=== PATIENT | female | born 1945 | race Caucasian/White ===

== ENCOUNTER → 2020-11-23 09:17 | Outpatient (BNVA) | payer MEDICARE, SELFPAY | PROVIDERS: PCP Internal Medicine; Visit Provider Urology | DX: Z13.89 Encounter for screening for other disorder (principal) | CPT/HCPCS: Q3014 ==

== ENCOUNTER 2020-12-06 10:15 | Outpatient (REF) | payer MEDICARE, SELFPAY ==
--- NOTE | ~2020-12-06 | US_ITS ---
EXAMINATION: US RETROPERITONEAL LIMITED (RENAL ONLY) CLINICAL INFORMATION: Calculus of kidney. COMPARISON: Renal ultrasound 11/18/2019 and 04/08/2019. X-ray abdomen 06/11/2019. CT abdomen and pelvis 04/02/2019. TECHNIQUE: Real-time imaging of the kidneys. FINDINGS: RIGHT KIDNEY: 9.3 x 3.6 x 4.2 cm (SAG x AP x TRV). The kidney is normal in size, contour, and echogenicity. Renal cortical thickness is normal. No renal calculi or hydronephrosis. There is an anechoic cyst in midpole measuring 0.8 x 0.7 x 1.1 cm. LEFT KIDNEY: 9.9 x 4.8 x 4.2 cm (SAG x AP x TRV). The kidney is normal in size, contour, and echogenicity. Renal cortical thickness is normal. No focal parenchymal lesions or hydronephrosis. There is an echogenic stone lower pole measuring 0.4 cm. US/US renal BI IMPRESSION: Anechoic cyst midpole right kidney measuring 1.1 cm. Echogenic stone lower pole measuring 0.4 cm.
== END 2020-12-06 10:16 | disposition home or self-care (01) ==
LOC: HO.US 10:15
PROVIDERS: Visit Provider Urology
DX: N20.0 Calculus of kidney (principal)
CPT/HCPCS: 76775

== ENCOUNTER → 2020-12-28 10:30 | Outpatient (BNVA) | payer MEDICARE, SELFPAY | PROVIDERS: PCP Internal Medicine; Visit Provider Urology | DX: N20.0 Calculus of kidney (principal) | CPT/HCPCS: 99212 ==

== ENCOUNTER 2021-06-07 14:21 | Outpatient (REF) | payer MEDICARE, SELFPAY ==
--- NOTE | ~2021-06-07 | US_ITS ---
EXAMINATION: US RETROPERITONEAL LIMITED (RENAL ONLY) CLINICAL INFORMATION: Renal stone. COMPARISON: Previous renal ultrasounds most recent November 2020 TECHNIQUE: Grayscale and color imaging of the kidneys FINDINGS: RIGHT KIDNEY: 10.4 x 3.4 x 5.2 cm (SAG x AP x TRV). The kidney is normal in size, contour, and echogenicity. Renal cortical thickness is normal. There is a 1 cm cyst exophytic to the midpole. No calculi. No hydronephrosis. LEFT KIDNEY: 10 x 6 x 5.4 cm (SAG x AP x TRV). The kidney is normal in size, contour, and echogenicity. Renal cortical thickness is normal. There is a 2 mm echogenic focus in the mid to lower pole with twinkle artifact questionable for a small stone. No focal parenchymal lesions. No hydronephrosis. US/US renal BI IMPRESSION: Question small left renal stone. Small right renal cyst..
== END 2021-06-07 14:22 | disposition home or self-care (01) ==
LOC: HO.US 14:21
PROVIDERS: Visit Provider Urology
DX: N20.0 Calculus of kidney (principal)
CPT/HCPCS: 76775

== ENCOUNTER 2021-06-15 08:23 | Emergency (ER) | payer MEDICARE, SELFPAY ==
--- NOTE | ~2021-06-15 | CT_ITS ---
EXAMINATION: CT ABDOMEN AND PELVIS WITH CONTRAST CLINICAL INFORMATION: Left lower quadrant pain. Rule out diverticulitis. COMPARISON: Previous CT of the abdomen and pelvis March 2019 TECHNIQUE: Multidetector volumetric images were obtained from the superior aspect of the liver through the pubic symphysis following administration 85 mL of Omnipaque 350 intravenous contrast. Sagittal and coronal reformatted images were obtained on the technologist's workstation. Oral contrast: Yes This CT examination was performed using dose optimization techniques as appropriate, variously including the following: *Automated exposure control *Adjustment of mA and/or kV according to patient size (this includes techniques or standardized protocols for targeted exams where dose is matched to indication/reason for exam; i.e. extremities or head) *Use of iterative reconstruction technique DLP: 517 mGy-cm FINDINGS: LUNG BASES: The visualized lung bases are unremarkable. LIVER, GALLBLADDER, AND BILIARY TREE: There is a small 1 cm cyst high in the dome of the liver that is stable. There is mild intrahepatic biliary duct dilatation. The common bile duct measures 1.2 cm. This is similar to previous exam. Pneumobilia is not seen. There is question of a contracted gallbladder containing air. There is tenting of the adjacent duodenum axial image 27 series 2 and coronal reconstructed image 35 again questionable for a fistula to the duodenum. This is similar to previous exams. PANCREAS: Unremarkable. SPLEEN: Unremarkable. ADRENAL GLANDS: Unremarkable. KIDNEYS AND URETERS: There are small bilateral low-attenuation renal lesions probably representing cysts. These are stable. No imaging follow-up recommended. The kidneys are otherwise unremarkable. BLADDER: Unremarkable. GASTROINTESTINAL TRACT: There is diverticulosis of the colon. There is focal wall thickening and edema of the distal left or proximal sigmoid colon. There is stranding of the surrounding fat and small amount of fluid suggestive of acute diverticulitis. No evidence of obstruction, perforation or abscess is seen. Small and large bowel is otherwise unremarkable. The appendix is unremarkable. The stomach is unremarkable. ABDOMINAL WALL: No significant hernia is appreciated. LYMPH NODES: Normal. VASCULAR: There is evidence of atherosclerotic disease. No aneurysm is seen. PELVIC VISCERA: Uterus is enlarged. The uterus measures 11.7 x 8.2 x 9 cm in sagittal AP and transverse dimension. There is a left uterine body mass that measures approximately 7 x 8 x 9 cm. This does not appear appreciably changed from old exams going back to 2019. The endometrium is displaced to the right. There may be a small amount of fluid or thickening of the endometrium. This appears unchanged. Adnexa appear unremarkable. OSSEOUS STRUCTURES: There are degenerative changes of the spine. CT/CT abdomen pelvis w con IMPRESSION: Acute diverticulitis of the distal left or proximal sigmoid colon. Mild intra and extrahepatic biliary duct dilatation. Question contracted gallbladder with air and fistula to the duodenum. This does not appear appreciably changed from prior exam. Small liver and bilateral renal cysts. Enlarged uterus with large left uterine mass probably representing a fibroid. This does not appear appreciably changed from prior exams.
[2021-06-15 08:36] VITALS: BP 144/65; PULSE 108; RESP 18; TEMP 36.8; O2SAT 97; BMI 24.0
--- NOTE | 2021-06-15 08:58 | ED.ABDPAIN ---
HPI - Abdominal Pain General Chief Complaint: Abdominal Pain Stated Complaint: lt side abd pain Time Seen by Provider: 06/15/21 08:50 Source: patient Mode of arrival: ambulatory Limitations: no limitations History of Present Illness HPI narrative: 75 yo female with past medical history of hypertension, high cholesterol, cognitive impairment, renal colic, gallstones here with complaints of left lower quadrant abdominal pain for 3 days. No nausea, vomiting, diarrhea, constipation, urinary symptoms, fevers or chills. Related Data Home Medications Medication Instructions Recorded Confirmed biotin 1 mg tablet 1 mg PO DAILY 11/22/20 05/25/21 cholecalciferol (vitamin D3) 25 25 mcg PO DAILY 11/22/20 05/25/21 mcg (1,000 unit) capsule cyanocobalamin (vitamin B-12) 1,000 mcg PO DAILY 11/22/20 05/25/21 1,000 mcg capsule flaxseed oil 1,000 mg capsule 1,000 mg PO DAILY 11/22/20 05/25/21 metronidazole 1 % topical gel 1 appl TOPICAL DAILY 11/22/20 05/25/21 (Metrogel) pyridoxine (vitamin B6) 100 mg 100 mg PO DAILY tab 11/22/20 05/25/21 tablet (Vitamin B-6) Previous Rx's Medication Instructions Recorded simvastatin 40 mg tablet 40 mg PO QPM 90 Days #90 tab 01/31/21 donepezil 5 mg tablet (Aricept) 5 mg PO BEDTIME 30 Days #30 tab 05/25/21 lisinopril 10 mg tablet 10 mg PO DAILY #90 tab 06/14/21 levofloxacin 750 mg tablet 750 mg PO DAILY 7 Days #7 tab 06/15/21 metronidazole 500 mg tablet 500 mg PO TID #21 tab 06/15/21 (Flagyl) oxycodone 5 mg tablet 5 mg PO Q6H PRN #5 tab 06/15/21 Allergies Allergy/AdvReac Type Severity Reaction Status Date / Time No Known Allergies Allergy Verified 05/25/21 09:42 [No Known Allergies*] Review of Systems Review of Systems Yes all other systems are reviewed and are negative Constitutional: Reports no additional constitutional complaints, Denies body ache(s), Denies chills, Denies fever(s), Denies headache(s) and Denies weakness Eyes: Reports no additional eye complaints and Denies change in vision Reports system reviewed and no additional complaints, except as documented, Denies dizziness, Denies headache(s), Denies nasal congestion, Denies nasal discharge and Denies neck pain Cardiovascular: Reports no additional cardiovascular complaints, Denies chest pain, Denies leg edema and Denies dyspnea Respiratory: Reports no additional respiratory complaints, Denies cough and Denies dyspnea Gastrointestinal: Reports no additional gastrointestinal complaints, Reports abdominal pain, Denies diarrhea, Denies nausea and Denies vomiting Genitourinary: Reports no additional female genitourinary complaints and Denies urinary incontinence Musculoskeletal: Reports no additional musculoskeletal complaints, Denies back pain, Denies arthralgias, Denies joint swelling, Denies neck pain, Denies numbness and Denies tingling Skin/Breast: Reports system reviewed and no additional complaints, except as docu and Denies rash Reports system reviewed and no additional complaints, except as documented, Denies Abnormal speech present, Denies dizziness, Denies headache(s), Denies numbness, Denies tingling and Denies weakness Physical Exam Vital Signs: Vital Signs: Last Vital Signs Temp 98.3 F 06/15/21 08:36 Pulse 108 H 06/15/21 08:36 Resp 16 06/15/21 10:15 BP 144/65 H 06/15/21 08:36 Pulse Ox 97 06/15/21 08:36 Body Mass Index 24.0 Const: General: cooperative, healthy appearing, comfortable and no acute distress Orientation/consciousness: patient oriented x3 Limitations: no limitations HENMT: Head: Yes normal to inspection Ears: hearing grossly normal bilaterally General nose exam: Normal external nose present Face and sinus: Yes normal facial exam Mouth: Normal oral and palatal mucosa present Throat: Yes posterior oropharynx normal Eyes: General: appearance normal, both eyes and all related structures Pupils: Equal, round and reactive pupils present Neck: Neck: Yes normal visual inspection Chest: Chest palpation & inspection: normal inspection of the chest Resp: Effort & Inspection: normal respiratory effort Auscultation: clear to auscultation bilaterally Cardio: Rate: regular rate Rhythm: regular rhythm Peripheral pulses: Peripheral pulses 2+ throughout GI: Inspection: Yes normal to inspection Palpation (GI): Soft to palpation and Tenderness to palpation present (GI) (Left lower quadrant abdominal pain with rebound and guarding) Auscultation: normal bowel sounds Back/Spine/Pelvis: Thoracic/Lumbar Spine: thoracic and lumbar spine normal to inspection Skin: General skin exam: no rashes or lesions noted Neuro: General: patient oriented x3, no focal motor deficits and normal sensation to monofilament Cranial nerves: Yes Equal, round and reactive pupils present Cognition (Neuro): normal cognition Speech: No Abnormal speech present Gait exam (Neuro): Normal gait present Motor exam (neuro): 5/5 motor strength present throughout Extrem: General: Yes normal to inspection Course Course Course Narrative: 75-year-old female here with complaints of left lower quadrant abdominal pain for 3 days. On exam is rebound and guarding. Will need labs, UA, CT, pain control 1215-labs are unremarkable. Urine is negative. CT is consistent with diverticulitis. 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 Patient has history of seen with gallstones in the jejunum which have been removed. The patient tells me she was referred to a surgeon at [facility] but decided not to have the surgery. I looked at the patient's previous CT scan this looks unchanged from previous. Patient is aware she needs to follow up with primary care doctor in regards to this. She is tolerating p.o.. Her pain is well controlled. Will send her home with antibiotics for the diverticulitis. Reviewed worrisome signs and symptoms and when to return to the emergency department. Comfortable discharge home. MDM - Abdominal Pain MDM Narrative Medical decision making narrative: Diverticulitis Medical Records Attestation: I reviewed the patient's medical records. Lab Data Attestation: I reviewed the patient's lab results. Result diagrams: 06/15/21 09:09 06/15/21 09:09 Labs: Lab Results 06/15/21 06/15/21 06/15/21 Range/Units 09:09 09:09 09:55 WBC 10.6 (4.8-10.8) X10*3/uL RBC 4.53 (4.20-5.50) X10*6/uL Hgb 14.6 (12.0-16.0) g/dl Hct 43.1 (37-47) % MCV 95.1 (80-98) fL MCH 32.2 (27.0-33.0) pg MCHC 33.9 (31.0-35.0) g/dl RDW 13.2 (11.0-16.0) % Plt Count 210 (160-400) X10*3/uL MPV 10.9 (9.4-12.3) fL Immature Gran % (Auto) 0.4 (0.0-0.4) % Neut % (Auto) 74.1 H (45-73) % Lymph % (Auto) 18.0 L (20-40) % [place] % (Auto) 6.9 (2-11) % Eos % (Auto) 0.4 (0-4) % Baso % (Auto) 0.2 (0-2) % Lymph # (Auto) 1.9 (1.2-4.9) X10*3/uL [place] # (Auto) 0.7 (0.1-1.2) X10*3/uL Eos # (Auto) 0.0 (0.0-0.4) X10*3/uL Baso # (Auto) 0.0 (0.0-0.2) X10*3/uL Abs Immat Gran (auto) 0.04 H (0.00-0.03) X10*3/uL Absolute Neuts (auto) 7.8 (2.0-8.3) X10*3/uL Absolute Nucleated RBC 0.000 (0.0-0.012) X10*3/uL Nucleated RBC % (auto) 0.0 (0.0-0.2) /100WBC Sodium 140 (135-145) mmol/L Potassium 4.0 (3.3-5.1) mmol/L Chloride 104 (96-108) mmol/L Carbon Dioxide 28 (22-29) mmol/L Anion Gap 12 (12-20) BUN 9 (9-16) mg/dL Creatinine 0.99 (0.5-1.4) mg/dL Estim Creat Clear Calc 41.7 Estimated GFR 55 Random Glucose 120 H (60-115) mg/dL Calcium 9.2 (8.4-10.2) mg/dL Total Bilirubin 1.3 H (0.0-1.0) mg/dL Direct Bilirubin 0.5 (0.0-0.5) mg/dL AST 30 (5-31) U/L ALT 29 (0-31) U/L Alkaline Phosphatase 80 (39-117) U/L Total Protein 6.2 L (6.5-8.0) g/dL Albumin 4.0 (3.5-5.0) g/dL Lipase 15 (8-78) U/L Urine Color YELLOW Urine Appearance CLEAR Urine pH 6.0 (5.0-8.0) Ur Specific [place] <= 1.005 (1.005-1.025) Urine Protein NEG (NEG-TRACE) MG/DL Urine Glucose (UA) NEG (NEG) MG/DL Urine Ketones NEG (NEG) MG/DL Urine Blood NEG (NEG) Urine Nitrite NEG (NEG) Ur Leukocyte Esterase NEG (NEG) Imaging Data CT scan - abdomen: Attestation: I personally reviewed and interpreted this imaging study as follows: Radiologist's impression: [place] [id number] CT Scan Report Signed Patient: Elba Crook MR#: [id number] : 1945 Acct:[id number] Age/Sex: 75 / F ADM Date: 06/15/21 Loc: .ED Attending Dr: Ordering Physician: Soledad Yoo NP Date of Service: 06/15/21 Procedure(s): CT abdomen pelvis w con Accession Number(s): [id number] cc: Soledad Yoo NP~ EXAMINATION: CT ABDOMEN AND PELVIS WITH CONTRAST? CLINICAL INFORMATION: Left lower quadrant pain. Rule out diverticulitis.? COMPARISON: Previous CT of the abdomen and pelvis March 2019 TECHNIQUE: Multidetector volumetric images were obtained from the superior aspect of the liver through the pubic symphysis following administration 85 mL of Omnipaque 350 intravenous contrast. Sagittal and coronal reformatted images were obtained on the technologist's workstation.? Oral contrast: Yes This CT examination was performed using dose optimization techniques as appropriate, variously including the following: *Automated exposure control *Adjustment of mA and/or kV according to patient size (this includes techniques or standardized protocols for targeted exams where dose is matched to indication/reason for exam; i.e. extremities or head) *Use of iterative reconstruction technique DLP: 517 mGy-cm FINDINGS: LUNG BASES: The visualized lung bases are unremarkable.? LIVER, GALLBLADDER, AND BILIARY TREE: There is a small 1 cm cyst high in the dome of the liver that is stable. There is mild intrahepatic biliary duct dilatation. The common bile duct measures 1.2 cm. This is similar to previous exam. Pneumobilia is not seen. There is question of a contracted gallbladder containing air. There is tenting of the adjacent duodenum axial image 27 series 2 and coronal reconstructed image 35 again questionable for a fistula to the duodenum. This is similar to previous exams. PANCREAS: Unremarkable.? SPLEEN: Unremarkable.? ADRENAL GLANDS: Unremarkable.? KIDNEYS AND URETERS: There are small bilateral low-attenuation renal lesions probably representing cysts. These are stable. No imaging follow-up recommended. The kidneys are otherwise unremarkable. BLADDER: Unremarkable.? GASTROINTESTINAL TRACT: There is diverticulosis of the colon. There is focal wall thickening and edema of the distal left or proximal sigmoid colon. There is stranding of the surrounding fat and small amount of fluid suggestive of acute diverticulitis. No evidence of obstruction, perforation or abscess is seen. Small and large bowel is otherwise unremarkable. The appendix is unremarkable. The stomach is unremarkable.? ABDOMINAL WALL: No significant hernia is appreciated.? LYMPH NODES: Normal. VASCULAR: There is evidence of atherosclerotic disease. No aneurysm is seen. PELVIC VISCERA: Uterus is enlarged. The uterus measures 11.7 x 8.2 x 9 cm in sagittal AP and transverse dimension. There is a left uterine body mass that measures approximately 7 x 8 x 9 cm. This does not appear appreciably changed from old exams going back to 2019. The endometrium is displaced to the right. There may be a small amount of fluid or thickening of the endometrium. This appears unchanged. Adnexa appear unremarkable. OSSEOUS STRUCTURES: There are degenerative changes of the spine.? CT/CT abdomen pelvis w con IMPRESSION: Acute diverticulitis of the distal left or proximal sigmoid colon. Mild intra and extrahepatic biliary duct dilatation. Question contracted gallbladder with air and fistula to the duodenum. This does not appear appreciably changed from prior exam. Small liver and bilateral renal cysts. Enlarged uterus with large left uterine mass probably representing a fibroid. This does not appear appreciably changed from prior exams. Discharge Plan Discharge Clinical Impression: Diverticulitis Patient Disposition: Home, Self-Care Instructions: Diverticulitis (ED), Diverticulosis (ED), Diverticulitis Diet (ED) Additional Instructions: Take the antibiotics as prescribed Take the antibiotics with food Start a probiotic Your CT scan also shows a fistula between your gallbladder and duodenum. This was seen on your previous CT scan and it appears unchanged Prescriptions: New metronidazole [Flagyl] 500 mg tablet 500 mg PO TID Qty: 21 RF: 0 levofloxacin 750 mg tablet 750 mg PO DAILY 7 Days Qty: 7 RF: 0 oxycodone 5 mg tablet 5 mg PO Q6H PRN (Reason: pain) Qty: 5 RF: 0 No Action simvastatin 40 mg tablet 40 mg PO QPM 90 Days Qty: 90 RF: 2 lisinopril 10 mg tablet 10 mg PO DAILY Qty: 90 RF: 3 pyridoxine (vitamin B6) [Vitamin B-6] 100 mg tablet 100 mg PO DAILY RF: 0 metronidazole [Metrogel] 1 % gel 1 appl topical DAILY RF: 0 cholecalciferol (vitamin D3) 25 mcg (1,000 unit) capsule 25 mcg PO DAILY RF: 0 biotin 1 mg tablet 1 mg PO DAILY RF: 0 flaxseed oil 1,000 mg capsule 1,000 mg PO DAILY RF: 0 cyanocobalamin (vitamin B-12) 1,000 mcg capsule 1,000 mcg PO DAILY RF: 0 donepezil [Aricept] 5 mg tablet 5 mg PO BEDTIME 30 Days Qty: 30 RF: 3 Interventions: ED Discharge Assessment Last Done: 06/15/21 11:28 Discharge Date/Time: 06/15/21 11:32 [facility] Past Medical History Attestation statement: The following information was validated with the patient. Source: old records reviewed and nursing notes reviewed Medical History Cholecystoduodenal fistula History of renal calculi Hypercholesterolemia Hypertension Impaired glucose tolerance Overweight (BMI 25.0-29.9) Rosacea Tubular adenoma of colon Surgical History H/O breast biopsy History of cystoscopy History of laparotomy History of rectal polypectomy Family History Family History Family/Other Medical history unknown Social History Social History Housing: House Alcohol intake: never Patient Tobacco Use Status: Never used Tobacco e-Cigarette/Vaping Use: Never Used Use of substances other than those prescribed or required for medical reasons: No Advance Directives: No service: No Current occupational status: employed
[2021-06-15 09:15] LABS: MANUAL DIFF FLAG NO
[2021-06-15 09:22] LABS: Basophils Percent Auto 0.2 % (0-2); Eosinophils Percent Auto 0.4 % (0-4); Hematocrit 43.1 % (37-47); Hemoglobin 14.6 g/dl (12.0-16.0); Imm Gran Abs Auto 0.04 X10*3/uL (0.00-0.03); Imm Gran Pct Auto 0.4 % (0.0-0.4); Lymphocytes Absolute Auto 1.9 X10*3/uL (1.2-4.9); Mean Corpuscular HGB Conc 33.9 g/dl (31.0-35.0); Mean Corpuscular Hemoglobin 32.2 pg (27.0-33.0); Mean Corpuscular Volume 95.1 fL (80-98); Mean Platelet Volume 10.9 fL (9.4-12.3); Monocytes Absolute Auto 0.7 X10*3/uL (0.1-1.2); Monocytes Percent Auto 6.9 % (2-11); Neutrophils Absolute Auto 7.8 X10*3/uL (2.0-8.3); Neutrophils Percent Auto 74.1 % (45-73); Platelet Count 210 X10*3/uL (160-400); Red Blood Count 4.53 X10*6/uL (4.20-5.50); Red Cell Distribution Width 13.2 % (11.0-16.0); White Blood Count 10.6 X10*3/uL (4.8-10.8)
[2021-06-15 09:42] LABS: Alanine Aminotransferase 29 U/L (0-31); Alkaline Phosphatase 80 U/L (39-117); Anion Gap 12 (12-20); Aspartate Amino Transferase 30 U/L (5-31); Bilirubin Direct 0.5 mg/dL (0.0-0.5); Bilirubin Total 1.3 mg/dL (0.0-1.0); Blood Urea Nitrogen 9 mg/dL (9-16); Calcium 9.2 mg/dL (8.4-10.2); Carbon Dioxide 28 mmol/L (22-29); Chloride 104 mmol/L (96-108); Creatinine Clr Calc Pharmacy 41.7; Estimated Glomerular Filt Rate 55; Glucose Random 120 mg/dL (60-115); Lipase 15 U/L (8-78); Sodium 140 mmol/L (135-145); Total Protein 6.2 g/dL (6.5-8.0)
[2021-06-15 10:07] LABS: Appearance Urine CLEAR; Color Urine YELLOW; Glucose Urine UA NEG (NEG); Leukocyte Esterase Urine NEG (NEG); Nitrite Urine NEG (NEG); Specific Gravity - Urine <= 1.005 (1.005-1.025); Urine Blood NEG (NEG); Urine Ketones NEG (NEG); Urine Protein NEG (NEG-TRACE)
[2021-06-15 10:15] VITALS: RESP 16
[2021-06-15] MEDS: Morphine Sulfate 2 MG/ML CARTRIDGE IVPUSH (10:15)
[2021-06-15] MEDS: iohexoL 350 MG/ML 100 ML INFUS..BTL IV (10:45)
== END 2021-06-15 11:32 | disposition home or self-care (01) ==
PROVIDERS: Nurse Practitioner Family; Emergency Provider Emergency Medicine Emergency Medical Services; PCP Internal Medicine
DX: K57.32 Diverticulitis of large intestine without perforation or abscess without bleeding (principal); Z79.899 Other long term (current) drug therapy
CPT/HCPCS: 36415; 74177; 80048; 80076; 81003; 83690; 85025; 96374; 99284; J2270; Q9967

== ENCOUNTER 2021-07-06 09:12 | Outpatient (REF) | payer MEDICARE, SELFPAY ==
--- NOTE | ~2021-07-06 | MM_ITS ---
EXAMINATION: MM SCREENING DIGITAL BREAST TOMOSYNTHESIS, BILATERAL CLINICAL INFORMATION: Screening. Asymptomatic. History focal atypical lobular hyperplasia right breast, status post excision 02/03/2015. The lifetime risk of breast cancer based on the Tyrer-Cuzick Model is 13%. COMPARISON: Mammography: 06/11/2019, 04/24/2018, 04/19/2018, 03/05/2017 TECHNIQUE: Digital breast tomosynthesis is performed in both the craniocaudal and mediolateral oblique views along with computer-aided detection (CAD). Synthesized 2D images are generated from the tomosynthesis. FINDINGS: There are scattered areas of fibroglandular density (ACR BI-RADS breast composition Category b). There is fine fibronodular parenchymal pattern. Left breast is similar to prior studies with no interval mass or architectural abnormality. There is biopsy clip marker again noted left breast mid 3:00 position. Neither breast shows abnormal calcifications. The axilla and skin contours are unremarkable. Right breast has benign coarse calcification in the lumpectomy scar posterior upper breast. There are 2 focal nodular asymmetric densities on the right, posterior 12:00 position 6 cm from nipple, and periareolar upper outer right breast 3 cm from nipple. Patient will be recalled for additional imaging. MM/MM tomosynthesis screening BI IMPRESSION: 1. Right: 2 nodular asymmetric densities on right posterior 12:00 and periareolar upper outer. 2. Left: No mammographic evidence of malignancy. ASSESSMENT: BI-RADS 0: Incomplete - Need Additional Imaging Evaluation RECOMMENDATION: 1. Additional views of the right breast (3-D spot CC, 3-D spot ML). 2. Targeted ultrasound if warranted after review of the additional views. 3. Radiology department staff will contact the patient for additional imaging. This patient's information was entered into a reminder system with a target due date for their next mammogram.
--- NOTE | ~2021-07-06 | MM_ITS ---
EXAMINATION: BONE DENSITOMETRY CLINICAL INDICATION: Encounter for screening for osteoporosis. COMPARISON: Previous BD dated 07/23/2018 and baseline BD dated 05/07/2009. TECHNIQUE: Using a [employer] DXA System (software version: 13.1) manufactured by [employer], dual-energy x-ray absorptiometry was performed of the lumbar spine and left hip. The images are of good technical quality. Summary results are attached. FINDINGS: AP SPINE L1-L4: Current: BMD 0.973 g/cm2, Z-score 0.1, T-score -1.7, osteopenia, 0.4% decrease from previous, 4.1% decrease from baseline (<5% change is not significant). Prior: BMD 0.977 g/cm2. Baseline: BMD 1.015 g/cm2. LEFT FEMUR, NECK: Current: BMD 0.793 g/cm2, Z-score 0.2, T-score -1.8, osteopenia. Prior: BMD 0.903 g/cm2. Baseline: BMD 0.915 g/cm2. LEFT FEMUR, TOTAL: Current: BMD 0.844 g/cm2, Z-score 0.5, T-score -1.3, osteopenia, 7.3% decrease from previous, 14.1% decrease from baseline (<5% change is not significant). Prior: BMD 0.910 g/cm2. Baseline: BMD 0.983 g/cm2. IDENTIFIED RISK FACTORS: Low calcium intake, family history (parental hip fracture), menopause. HISTORY OF FRACTURE: None listed. MEDICATIONS: Vitamin D. MM/XR DEXA axial skeleton IMPRESSION: 1. DIAGNOSIS: Osteopenia based on the lowest T-score value of -1.8 in the femoral neck applying World Health Organization criteria. 2. 10-YEAR FRACTURE RISK PREDICTION, FRAX: Major osteoporotic fracture (clinical spine, forearm, hip or shoulder) 23.2%. Hip fracture 13.2%. 3. Treatment Recommendations: NOF guidelines recommend consideration for treatment in postmenopausal women and men age 50 and older presenting with the following: -A hip or vertebral (clinical or morphometric) fracture. -T-score less than or equal to -2.5 at the femoral neck or spine after appropriate evaluation to exclude secondary causes. -Low bone mass at the hip or spine and a 10-year fracture probability by FRAX of greater than or equal to 3% for hip fracture or greater than or equal to 20% for major osteoporotic fracture based on the [place] adapted WHO algorithm. 4. Other Recommendations: All treatment decisions require clinical judgment and consideration of individual patient factors, including patient preferences, comorbidities, previous drug use, risk factors not captured in the FRAX model (e.g. frailty, falls, vitamin D deficiency, increased bone turnover, interval significant decline in bone density) and possible under or overestimation of fracture risk by FRAX. Additional medical evaluation for secondary cause of low bone mineral density may be appropriate. FUTURE SCAN RECOMMENDATION: People with diagnosed cases of osteoporosis or at high risk for fracture should have regular bone mineral density tests. For patients eligible for Medicare, routine testing is allowed once every 2 years. The testing frequency can be increased to one year for patients who have rapidly progressing disease, those who are receiving or discontinuing medical therapy to restore bone mass, or have additional risk factors.
== END 2021-07-06 09:13 | disposition home or self-care (01) ==
LOC: HO.MAMMO 09:12
PROVIDERS: Visit Provider Internal Medicine
DX: Z12.31 Encounter for screening mammogram for malignant neoplasm of breast (principal); Z13.820 Encounter for screening for osteoporosis; M85.80 Other specified disorders of bone density and structure, unspecified site; Z78.0 Asymptomatic menopausal state; Z87.81 Personal history of (healed) traumatic fracture; Z79.899 Other long term (current) drug therapy
CPT/HCPCS: 77063; 77067; 77080

== ENCOUNTER 2021-07-11 08:54 | Outpatient (REF) | payer MEDICARE, SELFPAY ==
--- NOTE | ~2021-07-11 | MM_ITS ---
EXAMINATION: MM DIAGNOSTIC DIGITAL BREAST TOMOSYNTHESIS, RIGHT US DIAGNOSTIC ULTRASOUND BREAST, RIGHT CLINICAL INFORMATION: Recall from screening for 2 new findings right breast, periareolar nodular asymmetric density and 12:00 nodular asymmetric density. History focal atypical lobular hyperplasia right breast, status post excision 02/03/2015. TC score 13%. COMPARISON: Mammography: 07/06/2021, 06/11/2019, 04/19/2018 TECHNIQUE: Digital breast tomosynthesis is performed. 2D images are generated from the tomosynthesis. The following views are obtained: Spot CC, spot MLO x2, spot ML. Ultrasound right breast is targeted to the periareolar and upper breast. Grayscale imaging and color Doppler are performed without and with harmonics. FINDINGS: There are scattered areas of fibroglandular density (ACR BI-RADS breast composition Category b). The additional views confirm focal nodular asymmetric density anterior 11:00 right breast, approximately 0.5 cm. Margins are indistinct. The additional views also confirm a benign-appearing circumscribed macrolobulated nodule mid 12:00 position under 1 cm. Ultrasound right breast demonstrates an irregular hypoechoic nodule 11:00 position 3 cm from nipple 0.5 cm in size. There is associated color flow extending into the nodule. Ultrasound also demonstrates an incidental oval cyst 12:00 position 6 cm from nipple with overall dimensions 0.4 x 0.5 x 0.6 cm. The cyst is anechoic and shows increased through-transmission of sound, circumscribed margins, and no color flow. Results are discussed with the patient and her at time of visit. The finding anterior 11:00 position is recommended for ultrasound-guided core biopsy. MM/MM tomosynthesis added views R IMPRESSION: 1. Suspicious irregular hypoechoic nodule anterior 11:00 position measuring 0.5 cm. 2. Incidental cyst 12:00 position mid depth. ASSESSMENT: BI-RADS 4: Suspicious RECOMMENDATION: Ultrasound-guided core biopsy nodule anterior 11:00 position. This patient's information was entered into a reminder system with a target due date for their next mammogram.
== END 2021-07-11 08:55 | disposition home or self-care (01) ==
LOC: HO.MAMMO 08:54
PROVIDERS: Visit Provider Internal Medicine
DX: R92.1 Mammographic calcification found on diagnostic imaging of breast (principal); R92.2 Inconclusive mammogram
CPT/HCPCS: 76642; 77061; 77065

== ENCOUNTER 2021-07-20 09:14 | Outpatient (REF) | payer MEDICARE, SELFPAY ==
--- NOTE | ~2021-07-20 | MM_ITS ---
EXAMINATION: ULTRASOUND GUIDED CORE BIOPSY BREAST, RIGHT POST PROCEDURE DIGITAL MAMMOGRAM, RIGHT CLINICAL INFORMATION: Irregular hypoechoic nodule anterior 11:00 right breast under 1 cm. COMPARISON: Mammography 07/06/2021, 07/11/2021, targeted right breast ultrasound 07/11/2021. FINDINGS: Proper informed consent is obtained from the patient after discussion of the procedure, potential risks and complications, and alternatives. Patient was given an opportunity for questions. The patient appeared to understand. The patient consented to the procedure and signed the consent form. GUIDANCE: Ultrasound-guided; aseptic technique. LESION: Irregular hypoechoic nodule 0.5 cm, anterior 11:00 right breast with internal color flow. APPROACH: Lateral medial. ANESTHESIA: 9 mL carbonated 1% lidocaine. DERMATOTOMY: Single skin jan dermatotomy performed. NEEDLE: 14-gauge Achieve core biopsy device with 13.5-gauge co-axial guide needle. CORES: 5. CLIP: HydroMARK; shape: open coil. POST PROCEDURE UNILATERAL DIGITAL MAMMOGRAM: The post biopsy mammogram is performed in separate room using separate digital mammography equipment from the biopsy procedure. CC and ML x2 views are obtained. There are scattered areas of fibroglandular density (breast composition category: b). The clip marker is in position, residing adjacent to medial side of the nodule. No gross hematoma. The patient tolerated the procedure well. No immediate complications. Home instructions reviewed with the patient. Final pathology results are pending. MM/MM diagnostic mammo unilat RT IMPRESSION: 1. Status post ultrasound-guided core biopsy right breast. 2. Clip placed: HydroMARK; shape: open coil. 3. Pathology pending. An addendum report will be issued.
[2021-07-20] MEDS: Lidocaine HCl 1 % 20 ML VIAL 9 ML SUBCUT (10:57)
[2021-07-20] MEDS: Sodium Bicarbonate 8.4% 50 MEQ/50 ML VIAL SUBCUT (10:58)
== END 2021-07-20 09:15 | disposition home or self-care (01) ==
LOC: HO.MAMMO 09:14
PROVIDERS: Visit Provider Surgery
DX: R92.1 Mammographic calcification found on diagnostic imaging of breast (principal)
CPT/HCPCS: 19083; 77065; 88305; 88342; 88360; 99212

== ENCOUNTER → 2021-07-27 11:10 | Outpatient (BNVA) | payer MEDICARE, SELFPAY | PROVIDERS: PCP Internal Medicine; Referring Provider Internal Medicine; Visit Provider Surgery | DX: C50.911 Malignant neoplasm of unspecified site of right female breast (principal) | CPT/HCPCS: 99212 ==

== ENCOUNTER → 2021-07-28 08:54 | Outpatient (BNV) | payer MEDICARE, SELFPAY | PROVIDERS: PCP Internal Medicine; Visit Provider Internal Medicine | DX: C50.911 Malignant neoplasm of unspecified site of right female breast (principal) | CPT/HCPCS: 99204; 99212; 99214 ==

== ENCOUNTER 2021-08-02 08:50 | Day surgery (SDC) | payer MEDICARE, SELFPAY ==
--- NOTE | 2021-08-01 13:14 | HO.ANESPROP2 ---
Documented by User: Radha Padgett NP 08/01/21 13:26 HPI - Anesthesia Eval Consult details Narrative: 75yo F for Right [place] Node Biopsy, Breast Biopsy Needle Localization, Breast Lumpectomy PMFSH Active Problems Active Problems: All Active Problems (Updated 07/28/21 @ 11:37 by Elke Prado MD) Invasive ductal carcinoma of right breast (Acute) Abnormal mammogram of right breast (Acute) Breast calcification, right (Acute) Cognitive impairment (Acute) Osteopenia (Acute) Breast cancer screening by mammogram (Acute) Annual physical exam (Acute) Nephrolithiasis (Acute) Osteoarthritis of knees, bilateral (Acute) Memory deficit (Acute) Impaired glucose tolerance (Acute) Overweight (BMI 25.0-29.9) (Acute) Hypertension (Acute) Hypercholesterolemia (Acute) Past Medical History Medical History Abnormal mammogram of right breast Cholecystoduodenal fistula History of renal calculi Hypercholesterolemia Hypertension Impaired glucose tolerance Invasive ductal carcinoma of right breast Overweight (BMI 25.0-29.9) Rosacea Tubular adenoma of colon Family History Family History Family/Other Medical history unknown Father Cancer Surgical History Surgical History H/O breast biopsy History of cystoscopy History of laparotomy History of rectal polypectomy Social History Social History Housing: House Are you a primary laboratory animal caretaker to a significant other at home: No Alcohol intake: former Patient Tobacco Use Status: Never used Tobacco e-Cigarette/Vaping Use: Never Used Use of substances other than those prescribed or required for medical reasons: No Are you DNR?: No Advance Directives: No Advance Directives Information Provided: Yes service: No Current occupational status: employed Meds Allergies Allergy/AdvReac Type Severity Reaction Status Date / Time No Known Allergies Allergy Verified 08/02/21 09:01 [No Known Allergies*] Home Medications Medication Instructions Recorded Confirmed Last Taken Type biotin 1 mg tablet 1 mg PO DAILY 11/22/20 07/27/21 Unknown History cholecalciferol (vitamin D3) 25 25 mcg PO DAILY 11/22/20 07/27/21 Unknown History mcg (1,000 unit) capsule cyanocobalamin (vitamin B-12) 1,000 mcg PO DAILY 11/22/20 07/27/21 Unknown History 1,000 mcg capsule flaxseed oil 1,000 mg capsule 1,000 mg PO DAILY 11/22/20 07/27/21 Unknown History metronidazole 1 % topical gel 1 appl TOPICAL DAILY 11/22/20 07/27/21 Unknown History (Metrogel) pyridoxine (vitamin B6) 100 mg 100 mg PO DAILY tab 11/22/20 07/27/21 Unknown History tablet (Vitamin B-6) Exam Exam Date and Time: August 01, 2021 1314 Pertinent Lab Results Pertinent Lab Results: Laboratory Tests 06/15/21 06/15/21 09:09 09:09 WBC 10.6 Hgb 14.6 Hct 43.1 Plt Count 210 Sodium 140 Potassium 4.0 Chloride 104 Carbon Dioxide 28 BUN 9 Creatinine 0.99 Assessment and Plan Assessment Anesthesia Assessment: Chart Reviewed Documented by User: Mary Kay Lang MD 08/02/21 13:34 [facility] Past Medical History Medical History Abnormal mammogram of right breast Cholecystoduodenal fistula History of renal calculi Hypercholesterolemia Hypertension Impaired glucose tolerance Invasive ductal carcinoma of right breast Overweight (BMI 25.0-29.9) Rosacea Tubular adenoma of colon Family History Family History Family/Other Medical history unknown Father Cancer Surgical History Surgical History H/O breast biopsy History of cystoscopy History of laparotomy History of rectal polypectomy History of Problems with Anesthesia: No Social History Social History Housing: House Are you a primary laboratory animal caretaker to a significant other at home: No Alcohol intake: former Patient Tobacco Use Status: Never used Tobacco e-Cigarette/Vaping Use: Never Used Use of substances other than those prescribed or required for medical reasons: No Are you DNR?: No Advance Directives: No Advance Directives Information Provided: Yes service: No Current occupational status: employed Meds Allergies Allergy/AdvReac Type Severity Reaction Status Date / Time No Known Allergies Allergy Verified 08/02/21 09:01 [No Known Allergies*] Home Medications Medication Instructions Recorded Confirmed Last Taken Type biotin 1 mg tablet 1 mg PO DAILY 11/22/20 07/27/21 Unknown History cholecalciferol (vitamin D3) 25 25 mcg PO DAILY 11/22/20 07/27/21 Unknown History mcg (1,000 unit) capsule cyanocobalamin (vitamin B-12) 1,000 mcg PO DAILY 11/22/20 07/27/21 Unknown History 1,000 mcg capsule flaxseed oil 1,000 mg capsule 1,000 mg PO DAILY 11/22/20 07/27/21 Unknown History metronidazole 1 % topical gel 1 appl TOPICAL DAILY 11/22/20 07/27/21 Unknown History (Metrogel) pyridoxine (vitamin B6) 100 mg 100 mg PO DAILY tab 11/22/20 07/27/21 Unknown History tablet (Vitamin B-6) Exam Airway Mallampati Class: II TM Dist: >3cm Neck ROM: Full Loose/Missing/Broken Teeth: No Heart: RRR Lungs: CTA Assessment and Plan Assessment Anesthesia Assessment: Anesthesia Plan Discussed Final Anesthetic Review History of Problems with Anesthesia: No NPO: Yes ASA Class: II and V Final Preanesthetic Review: Meds/Allgs Chart Reviewed, Consent Obtained/Reviewed and Anes Risks/Benef Reviewed Patient Risk: Low Procedure Risk: Low Anesthetic Plan Anesthetic Plan: MAC: Disposition: Standard PACU
[2021-08-02] VITALS (9 sets, daily range): BP systolic 110–138; BP diastolic 66–76; PULSE 64–95; RESP 16–18; TEMP 36.3–36.8; O2SAT 97–99; BMI 25.3
--- NOTE | ~2021-08-02 | NM_ITS ---
EXAMINATION: NM LYMPH SCINTIGRAPHY CLINICAL INFORMATION: Malignant neoplasm of right breast. COMPARISON: None TECHNIQUE: Following explaining right sentinal node procedure, benefits and risk, a written consent was obtained by Dr. Leach. 4% lidocaine was applied around the right breast areola half an hour prior to the exam. The area around the right breast areola was then cleaned in a sterile fashion. 0.5 mCi of tilmanocept divided in 4 equal doses was injected in 4 quadrants around the right breast areola without immediate complications. Imaging was obtained approximately 30 minutes later. FINDINGS: AP and lateral images obtained of the chest reveal isotope activity in the 4 quadrants surrounding the right breast areola. There is a solitary sentinel node in the right anterior axilla with streaky activity seen extending superiorly in the right axilla. NM/NM sentinel node w imaging IMPRESSION: Solitary sentinel node seen in the right anterior axilla on right breast lymphoscintigraphy.
--- NOTE | ~2021-08-02 | MM_ITS ---
EXAMINATION: MM MAMMOGRAM GUIDED NEEDLE LOCALIZATION BREAST, RIGHT MM NEEDLE LOCALIZATION SPECIMEN FROM THE RIGHT BREAST CLINICAL INFORMATION: Invasive ductal cancer anterior 11:00 right breast. COMPARISON: Mammography 07/06/2021, 07/11/2021, 07/20/2021, ultrasound right breast 07/11/2021, ultrasound-guided core biopsy right breast 07/20/2021. TECHNIQUE NEEDLE LOC: Proper informed consent is obtained from the patient after discussion of the procedure, potential risks and complications, and alternatives including declining the procedure today. Patient was given an opportunity for questions. The patient appeared to understand. The patient consented to the procedure and signed the consent form. GUIDANCE: Digital mammography. APPROACH: Cranio-caudal. TARGET: HydroMark Open coil shaped clip marker. ANESTHESIA: Carbonated lidocaine 1%: 6 mL. LOCALIZATION MARKER: [place] [employer]. 5 cm length. The skin is prepped and local anesthesia administered. The needle is positioned and position assessed with mammography. The wire is hooked into position. Clymer needle protector placed. The patient tolerated the procedure well and had no immediate complication. Following the procedure, 4% lidocaine ointment was administered to the left areola and covered with Tegaderm in anticipation of nuclear lymphoscintigraphy injection for sentinel lymph node mapping. Procedure results discussed with surgeon. TECHNIQUE SPECIMEN RADIOGRAPH: Imaging of the excised specimen is performed using digital mammography in 1 view. FINDINGS SPECIMEN RADIOGRAPH: The specimen shows the needle and hookwire are delivered intact. The biopsy clip marker is identified in the specimen. Results were called to Dr. Justin Suárez in the operating room at the time of imaging. MM/MM needle loc RT IMPRESSION: 1. Status post right breast needle localization with wire hooked into position. 2. Post operative specimen radiograph obtained.
[2021-08-02] MEDS: Lidocaine HCl 1 % 20 ML VIAL 7 ML SUBCUT (10:55)
[2021-08-02] MEDS: Sodium Bicarbonate 8.4% 50 MEQ/50 ML VIAL SUBCUT (10:56)
[2021-08-02] MEDS: Lactated Ringers 1,000 ML 100 ML IVCONT (11:53)
--- NOTE | 2021-08-02 13:54 | P.CONAN_ITS ---
[facility] Active Problems Active Problems: All Active Problems (Updated 07/28/21 @ 11:37 by Elke Prado MD) Invasive ductal carcinoma of right breast (Acute) Abnormal mammogram of right breast (Acute) Breast calcification, right (Acute) Cognitive impairment (Acute) Osteopenia (Acute) Breast cancer screening by mammogram (Acute) Annual physical exam (Acute) Nephrolithiasis (Acute) Osteoarthritis of knees, bilateral (Acute) Memory deficit (Acute) Impaired glucose tolerance (Acute) Overweight (BMI 25.0-29.9) (Acute) Hypertension (Acute) Hypercholesterolemia (Acute) Past Medical History Medical History Abnormal mammogram of right breast Cholecystoduodenal fistula History of renal calculi Hypercholesterolemia Hypertension Impaired glucose tolerance Invasive ductal carcinoma of right breast Overweight (BMI 25.0-29.9) Rosacea Tubular adenoma of colon Family History Family History Family/Other Medical history unknown Father Cancer Surgical History Surgical History H/O breast biopsy History of cystoscopy History of laparotomy History of rectal polypectomy History of Problems with Anesthesia: No Social History Social History Housing: House Are you a primary palliative care specialist to a significant other at home: No Alcohol intake: former Patient Tobacco Use Status: Never used Tobacco e-Cigarette/Vaping Use: Never Used Use of substances other than those prescribed or required for medical reasons: No Are you DNR?: No Advance Directives: No Advance Directives Information Provided: Yes service: No Current occupational status: employed Meds Allergies Allergy/AdvReac Type Severity Reaction Status Date / Time No Known Allergies Allergy Verified 08/02/21 09:01 [No Known Allergies*] Active Medications: Current Medications Acetaminophen (Acetaminophen 325 Mg Tablet) 650 mg PO ONCE PRN PRN Reason: Pain, Mild (Pain Scale 1-3) Albuterol Sulfate (Albuterol Sulfate (0.083%) 2.5 Mg/3 Ml Vial.Neb) 2.5 mg INHALE ONCE PRN PRN Reason: Wheezing Fentanyl (Fentanyl Citrate/Pf 100 Mcg/2 Ml Vial) 50 mcg IVPUSH Q5M PRN; Protocol PRN Reason: Pain, Severe (Pain Scale 7-10) Fentanyl (Fentanyl Citrate/Pf 100 Mcg/2 Ml Vial) 25 mcg IVPUSH Q5M PRN; Protocol PRN Reason: Pain, Moderate (Pain Scale 4-6 Lactated Ringer's (Lr) 1,000 mls @ 100 mls/hr IVCONT .Q10H SETH Last Admin: 08/02/21 11:53 Dose: 100 mls/hr Documented by: Oxycodone HCl (Oxycodone Hcl Immed Release 5 Mg Tablet) 10 mg PO ONCE PRN PRN Reason: Pain, Severe (Pain Scale 7-10) Oxycodone HCl (Oxycodone Hcl Immed Release 5 Mg Tablet) 5 mg PO ONCE PRN PRN Reason: Pain, Severe (Pain Scale 7-10) Home Medications Medication Instructions Recorded Confirmed Last Taken Type biotin 1 mg tablet 1 mg PO DAILY 11/22/20 07/27/21 Unknown History cholecalciferol (vitamin D3) 25 25 mcg PO DAILY 11/22/20 07/27/21 Unknown History mcg (1,000 unit) capsule cyanocobalamin (vitamin B-12) 1,000 mcg PO DAILY 11/22/20 07/27/21 Unknown History 1,000 mcg capsule flaxseed oil 1,000 mg capsule 1,000 mg PO DAILY 11/22/20 07/27/21 Unknown History metronidazole 1 % topical gel 1 appl TOPICAL DAILY 11/22/20 07/27/21 Unknown History (Metrogel) pyridoxine (vitamin B6) 100 mg 100 mg PO DAILY tab 11/22/20 07/27/21 Unknown History tablet (Vitamin B-6) Exam Exam Date and Time: August 02, 2021 1354 Height,Weight and Vital Signs: Height 5 ft 3 in Weight 64.864 kg Last Vital Signs Temp 98.3 F 08/02/21 09:25 Pulse 95 08/02/21 09:25 Resp 16 08/02/21 09:25 BP 124/73 08/02/21 09:25 Pulse Ox 98 08/02/21 09:25 Airway Mallampati Class: II TM Dist: >3cm Neck ROM: Full Loose/Missing/Broken Teeth: No Heart: RRR Lungs: CTA Assessment and Plan Assessment Anesthesia Assessment: Anesthesia Plan Discussed and Chart Reviewed Final Anesthetic Review History of Problems with Anesthesia: No NPO: Yes ASA Class: II Final Preanesthetic Review: Meds/Allgs Chart Reviewed, Consent Obtained/Reviewed and Anes Risks/Benef Reviewed Patient Risk: Low Procedure Risk: Low Anesthetic Plan Anesthetic Plan: GA Disposition: Standard PACU
--- NOTE | 2021-08-02 14:59 | W.PM.OPN ---
Operative Note Operative Note Date of Service: 08/02/21 Narrative: Preop diagnosis: Invasive ductal cancer of the right breast Postop diagnosis: The same Procedure: Lumpectomy, right breast with needle localization, and sentinel node biopsy Surgeon: Justin Suárez MD assistant store manager operations: BAL Hernandez The patient is a 75-year-old female, who recently underwent biopsy of calcifications on the right breast. This turned out to be invasive ductal carcinoma. She therefore wanted to proceed with breast conservation therapy with lumpectomy. She understood the technique of the procedure. She was aware of the risks, benefits, and alternatives. She was brought to the operating room and placed supine on the table with right arm abducted. She was under anesthesia via laryngeal mask airway. The right breast and the axilla were prepped and draped in the usual sterile fashion. A surgical time-out was done. The patient received cefazolin 2 g IV preoperatively The patient had undergone needle localization earlier. The localizing needle was seen to come from cephalad deep and a little caudally on the upper outer quadrant of the right breast. I reviewed the needle localization films with the radiologist. She also had undergone scintigraphy earlier for the sentinel nodes in the axilla and had reviewed the films as well. I made a short incision on the skin just tangential to the localizing needle using blade 15. This carried down through the full-thickness skin subcutaneous fat with electrocautery. I then used the curved Ponce to divide through the breast tissue surrounding this localizing needle we. We periodically palpated as we advanced the dissection deeper to make sure that we were including had enough margins of breast tissue surrounding the needle. We continued to dissect with the Ponce scissors all the way past the curve of the needle until we were able to completely free up this lumpectomy specimen. This was sent for immediate re-ray and gross exam. The lateral margins and the superior margins were marked with sutures. then proceeded to observe for hemostasis. I cauterized oozing areas. Once hemostasis was ensured, proceeded then apply a moist gauze in the lumpectomy cavity and covered this with Tegaderm We then proceeded to do our sentinel node biopsy. I scanned the axilla for IS counts. I backed this area and made a transverse incision using blade 15 on this area. This was carried down through the full-thickness skin and subcutaneous fat with electrocautery. I then proceeded to continue to gently dissect with Metzenbaum scissors down to the fascia. The fascia was opened and proceeded to then apply retractors to expose the axillary fat pad. I proceeded to periodically used the probe to direct our dissection towards the areas with a maximal counts on the nuclear counter. I therefore continued to scan this particular area to make sure that we were directing our dissection towards the sentinel node. The 1st sentinel node had a count of 274. I sharply dissected this with the Metzenbaum scissors and electrocautery until was delivered and this was sent as a specimen. A 2nd sentinel node with a count of 817, was also seen. We sharply dissected this with Metzenbaum scissors and this was delivered and sent as specimen. I scanned the rest of the axilla or any elevated counts. We did this slowly and we could not detect any other elevated counts the probe. I copies irrigated the biopsy site. I made sure we had good hemostasis. Once hemostasis was ensured, proceeded to reapposed the subcutaneous layer with Dexon 3-0 interrupted sutures. Skin closure was achieved with Dexon 4-0 subcuticular running sutures. We received a phone call from the radiologist stating that the entire needle along with the biopsy clip were intact. We received a phone callr from the pathologist stating that the anterior margins and lateral margins appeared to be close. I therefore proceeded to remove the Tegaderm and moist packing from the lumpectomy cavity. I proceeded to excise additional margins from the lateral as well as from the anterior side. These were sent as additional margins separately. I then proceeded to therefore made stasis. Once hemostasis was ensured with electrocautery, proceeded to reapposed the subcutaneous layer with Dexon 3-0 interrupted sutures. Skin closure was achieved with Dexon 4-0 subcuticular running stitch. Steri-Strips and dressings were applied. All incisions were infiltrated with Marcaine 0.5% for postop analgesia and the procedure was completed. The patient tolerated the procedure well. There were no complications noted. Initial and final counts of sponges and instruments were correct. Estimated blood loss was about 25 cc. The patient wasextubated without difficulty and transferred to the recovery room with stable vital signs.
--- NOTE | 2021-08-02 15:10 | PM.OP ---
Brief Operative Note Date of Service: 08/02/21 Pre-op diagnosis: Invasive ductal cancer right breast Post-op diagnosis: same Procedure: Right breast lumpectomy with needle localization, sentinel node biopsy Surgeon: Justin Suárez MD Anesthesia: GLMA Was an Product Technology Scientist used for this Procedure?: Yes Product Technology Scientist: Omayra Hernandez Estimated blood loss (mL): 25 Pathology: other (Lumpectomy specimen and 2 sentinel nodes; additional margins lateral and anterior) Condition: stable Disposition: PACU
[2021-08-02] MEDS: oxyCODONE HCl Immed Release 5 MG TABLET PO (15:45)
[2021-08-02] MEDS: fentaNYL citrate/PF 100 MCG/2 ML VIAL 25 MCG IVPUSH (15:50)
== END 2021-08-02 16:44 | disposition home or self-care (01) ==
PROVIDERS: PCP Internal Medicine; Visit Provider Surgery
PROC: (CPT 19301; principal; 2021-08-02 13:00)
PROC: (CPT 19301; 2021-08-02 13:00)
PROC: (CPT 19301; 2021-08-02 13:00)
DX: C50.911 Malignant neoplasm of unspecified site of right female breast (principal); Z17.0 Estrogen receptor positive status [ER+]; I10 Essential (primary) hypertension; R73.02 Impaired glucose tolerance (oral); Z79.899 Other long term (current) drug therapy
CPT/HCPCS: 19301; 38525; 19281; 78195; 88307; 88329; 88342; A4648; A9520; J0690; J1100; J2405; J3010

== ENCOUNTER → 2021-08-15 09:08 | Outpatient (BNVA) | payer MEDICARE, SELFPAY | PROVIDERS: PCP Internal Medicine; Referring Provider Internal Medicine; Visit Provider Surgery | DX: Z48.3 Aftercare following surgery for neoplasm (principal); C50.911 Malignant neoplasm of unspecified site of right female breast | CPT/HCPCS: 99212 ==

== ENCOUNTER → 2021-09-14 10:16 | Outpatient (BNVA) | payer MEDICARE, SELFPAY | PROVIDERS: PCP Internal Medicine; Referring Provider Internal Medicine; Visit Provider Surgery | DX: Z48.3 Aftercare following surgery for neoplasm (principal); C50.911 Malignant neoplasm of unspecified site of right female breast | CPT/HCPCS: 99212 ==

== ENCOUNTER → 2022-03-15 10:26 | Outpatient (BNVA) | payer MEDICARE, SELFPAY | PROVIDERS: PCP Internal Medicine; Visit Provider Surgery | DX: C50.911 Malignant neoplasm of unspecified site of right female breast (principal) | CPT/HCPCS: 99212 ==

== ENCOUNTER 2022-06-07 13:33 | Outpatient (REF) | payer MEDICARE, SELFPAY ==
--- NOTE | ~2022-06-07 | CT_ITS ---
EXAMINATION: CT HEAD WITHOUT CONTRAST CLINICAL INFORMATION: Disorientation COMPARISON: Previous head CT July 2013 TECHNIQUE: Contiguous axial imaging was performed from the skull base to vertex without intravenous administration of contrast. This CT examination was performed using dose optimization techniques as appropriate, variously including the following: *Automated exposure control *Adjustment of mA and/or kV according to patient size (this includes techniques or standardized protocols for targeted exams where dose is matched to indication/reason for exam; i.e. extremities or head) *Use of iterative reconstruction technique DLP: 704 mGy-cm FINDINGS: There is no evidence of an extra-axial collection. There is no evidence of intra-axial extra-axial hemorrhage. The ventricles and extra-axial CSF spaces are slightly prominent suggestive of mild generalized atrophy. There is nonspecific periventricular white matter disease. There is a small right basal ganglia lacunar infarct. No mass, mass effect or acute infarct is seen. Review at bone windows is normal. No skull fracture is seen. Visualized paranasal sinuses, mastoid air cells and middle ears are clear. CT/CT head/brain wo IV con IMPRESSION: No acute findings. Mild generalized atrophy and nonspecific periventricular white matter disease. Old right basal ganglia lacunar infarct.
== END 2022-06-07 13:34 | disposition home or self-care (01) ==
LOC: HO.CT 13:33
PROVIDERS: Visit Provider Internal Medicine
DX: R41.0 Disorientation, unspecified (principal)
CPT/HCPCS: 70450

== ENCOUNTER 2022-06-09 09:08 | Outpatient (REF) | payer MEDICARE, SELFPAY ==
[2022-06-09 09:27] LABS: MANUAL DIFF FLAG NO
[2022-06-09 09:43] LABS: Basophils Percent Auto 0.2 % (0-2); Eosinophils Absolute Auto 0.1 X10*3/uL (0.0-0.4); Eosinophils Percent Auto 1.2 % (0-4); Hematocrit 47.2 % (37.0-47.0); Hemoglobin 16.2 g/dl (12.0-16.0); Imm Gran Abs Auto 0.01 X10*3/uL (0.00-0.03); Imm Gran Pct Auto 0.2 % (0.0-0.4); Lymphocytes Absolute Auto 1.3 X10*3/uL (1.2-4.9); Lymphocytes Percent Auto 21.9 % (20-40); Mean Corpuscular HGB Conc 34.3 g/dl (31.0-35.0); Mean Corpuscular Hemoglobin 32.4 pg (27.0-33.0); Mean Corpuscular Volume 94.4 fL (80.0-98.0); Mean Platelet Volume 10.6 fL (9.4-12.3); Monocytes Absolute Auto 0.3 X10*3/uL (0.1-1.2); Monocytes Percent Auto 4.7 % (2-11); Neutrophils Absolute Auto 4.3 x10*3/uL (2.0-8.3); Neutrophils Percent Auto 71.8 % (45-73); Platelet Count 225 X10*3/uL (160-400); Red Cell Distribution Width 12.9 % (11.0-16.0); White Blood Count 5.9 X10*3/uL (4.8-10.8)
[2022-06-09 10:04] LABS: Estimated Average Glucose 111 mg/dL; Hemoglobin A1c % 5.5 %
[2022-06-09 10:09] LABS: Alanine Aminotransferase 16 U/L (0-31); Albumin Level 4.5 g/dL (3.5-5.0); Alkaline Phosphatase 87 U/L (39-117); Anion Gap 16 (12-20); Aspartate Amino Transferase 21 U/L (5-31); Blood Urea Nitrogen 18 mg/dL (9-16); Calcium 9.8 mg/dL (8.4-10.2); Carbon Dioxide 28 mmol/L (22-29); Chloride 101 mmol/L (96-108); Cholesterol 182 mg/dL; Estimated Glomerular Filt Rate 56; Glucose Random 110 mg/dL (60-115); HDL Cholesterol 55 mg/dL; LDL Cholesterol Calculated 101 mg/dl; Potassium 3.9 mmol/L (3.3-5.1); Sodium 141 mmol/L (135-145); Total Protein 6.8 g/dL (6.5-8.0); Triglycerides 133 mg/dL
[2022-06-09 10:30] LABS: Free T4 (Free Thyroxine) 1.05 ng/dL (0.71-1.85); Thyroid Stimulating Hormone 1.52 uIU/mL (0.32-4.0); Vitamin D 25-OH Total 89.2 ng/mL (>30)
[2022-06-09 10:41] LABS: Folate 9.8 ng/mL (> or = 4.0); Vitamin B12 1088 pg/mL (200-900)
== END 2022-06-09 09:09 | disposition home or self-care (01) ==
LOC: HO.LAB 09:08
PROVIDERS: PCP Internal Medicine; Visit Provider Internal Medicine
DX: I10 Essential (primary) hypertension (principal); E78.00 Pure hypercholesterolemia, unspecified; R73.02 Impaired glucose tolerance (oral)
CPT/HCPCS: 36415; 80053; 80061; 82306; 82607; 82746; 83036; 84439; 84443; 85025

== ENCOUNTER 2022-07-12 09:45 | Outpatient (REF) | payer MEDICARE, SELFPAY ==
--- NOTE | ~2022-07-12 | MM_ITS ---
EXAMINATION: MM DIAGNOSTIC DIGITAL BREAST TOMOSYNTHESIS, BILATERAL CLINICAL INFORMATION: Previous right breast lumpectomy 2020. COMPARISON: Mammography: 08/02/2021 and studies dating back to 02/18/2016. TECHNIQUE: Digital breast tomosynthesis is performed in both the craniocaudal and mediolateral oblique views along with computer-aided detection (CAD). Synthesized 2D images are generated from the tomosynthesis. Additional spot magnification views in craniocaudal and 90-degree mediolateral views performed. FINDINGS: There are scattered areas of fibroglandular density (ACR BI-RADS breast composition Category b). Since previous studies, patient is status post right breast lumpectomy and radiation therapy with associated change. No new suspicious dominant mass is appreciated. No suspicious grouping of calcifications is seen. There is a stable parenchymal pattern of the left breast. Results are provided to the patient at time of visit by the technologist. MM/MM tomosynthesis diagnostic BI IMPRESSION: Postsurgical and postradiation change of the right breast. No specific mammographic evidence to suggest new malignancy ASSESSMENT: BI-RADS 2: Benign. RECOMMENDATION: Diagnostic mammography at time of next annual exam, due in 12 months. This patient's information was entered into a reminder system with a target due date for their next mammogram.
[2022-07-12 10:29] LABS: MANUAL DIFF FLAG NO
[2022-07-12 10:45] LABS: Basophils Percent Auto 0.1 % (0-2); Eosinophils Absolute Auto 0.1 X10*3/uL (0.0-0.4); Hemoglobin 15.7 g/dl (12.0-16.0); Imm Gran Abs Auto 0.02 X10*3/uL (0.00-0.03); Imm Gran Pct Auto 0.3 % (0.0-0.4); Lymphocytes Absolute Auto 1.5 X10*3/uL (1.2-4.9); Lymphocytes Percent Auto 20.7 % (20-40); Mean Corpuscular HGB Conc 34.1 g/dl (31.0-35.0); Mean Corpuscular Hemoglobin 32.1 pg (27.0-33.0); Mean Corpuscular Volume 94.1 fL (80.0-98.0); Mean Platelet Volume 10.5 fL (9.4-12.3); Monocytes Absolute Auto 0.3 X10*3/uL (0.1-1.2); Monocytes Percent Auto 4.1 % (2-11); Neutrophils Absolute Auto 5.2 x10*3/uL (2.0-8.3); Neutrophils Percent Auto 73.8 % (45-73); Platelet Count 235 X10*3/uL (160-400); Red Blood Count 4.89 X10*6/uL (4.20-5.50); Red Cell Distribution Width 12.8 % (11.0-16.0); White Blood Count 7.1 X10*3/uL (4.8-10.8)
[2022-07-12 11:05] LABS: Alanine Aminotransferase 15 U/L (0-31); Albumin Level 4.5 g/dL (3.5-5.0); Alkaline Phosphatase 88 U/L (39-117); Anion Gap 15 (12-20); Aspartate Amino Transferase 21 U/L (5-31); Bilirubin Total 0.6 mg/dL (0.0-1.0); Blood Urea Nitrogen 12 mg/dL (9-16); Calcium 10.1 mg/dL (8.4-10.2); Carbon Dioxide 29 mmol/L (22-29); Chloride 103 mmol/L (96-108); Estimated Glomerular Filt Rate 57; Glucose Random 98 mg/dL (60-115); Potassium 3.9 mmol/L (3.3-5.1); Sodium 143 mmol/L (135-145)
== END 2022-07-12 09:46 | disposition home or self-care (01) ==
LOC: HO.MAMMO 09:45
PROVIDERS: Internal Medicine; PCP Internal Medicine; Visit Provider Internal Medicine
DX: Z98.890 Other specified postprocedural states (principal); M85.80 Other specified disorders of bone density and structure, unspecified site; Z85.3 Personal history of malignant neoplasm of breast
CPT/HCPCS: 36415; 77062; 77066; 80053; 85025

== ENCOUNTER 2022-09-20 10:24 | Outpatient (REF) | payer MEDICARE, SELFPAY ==
[2022-09-20 11:17] LABS: MANUAL DIFF FLAG NO
[2022-09-20 12:23] LABS: Basophils Percent Auto 0.2 % (0-2); Eosinophils Percent Auto 0.7 % (0-4); Hematocrit 45.8 % (37.0-47.0); Hemoglobin 15.5 g/dl (12.0-16.0); Imm Gran Abs Auto 0.01 X10*3/uL (0.00-0.03); Imm Gran Pct Auto 0.2 % (0.0-0.4); Lymphocytes Absolute Auto 1.4 X10*3/uL (1.2-4.9); Lymphocytes Percent Auto 25.1 % (20-40); Mean Corpuscular HGB Conc 33.8 g/dl (31.0-35.0); Mean Corpuscular Hemoglobin 32.4 pg (27.0-33.0); Mean Corpuscular Volume 95.6 fL (80.0-98.0); Mean Platelet Volume 10.7 fL (9.4-12.3); Monocytes Absolute Auto 0.2 X10*3/uL (0.1-1.2); Monocytes Percent Auto 3.9 % (2-11); Neutrophils Percent Auto 69.9 % (45-73); Platelet Count 243 X10*3/uL (160-400); Red Blood Count 4.79 X10*6/uL (4.20-5.50); Red Cell Distribution Width 12.8 % (11.0-16.0); White Blood Count 5.7 X10*3/uL (4.8-10.8)
[2022-09-20 12:55] LABS: Alanine Aminotransferase 17 U/L (0-31); Albumin Level 4.3 g/dL (3.5-5.0); Alkaline Phosphatase 78 U/L (39-117); Anion Gap 10 (12-20); Aspartate Amino Transferase 21 U/L (5-31); Bilirubin Total 0.7 mg/dL (0.0-1.0); Blood Urea Nitrogen 14 mg/dL (9-16); Calcium 9.4 mg/dL (8.4-10.2); Carbon Dioxide 31 mmol/L (22-29); Chloride 105 mmol/L (96-108); Cholesterol 174 mg/dL; Estimated Glomerular Filt Rate 59; Glucose Random 99 mg/dL (60-115); HDL Cholesterol 57 mg/dL; LDL Cholesterol Calculated 100 mg/dl; Potassium 3.9 mmol/L (3.3-5.1); Sodium 142 mmol/L (135-145); Total Protein 6.6 g/dL (6.5-8.0); Triglycerides 85 mg/dL
[2022-09-20 13:08] LABS: Free T4 (Free Thyroxine) 1.18 ng/dL (0.71-1.85)
[2022-09-20 13:14] LABS: Thyroid Stimulating Hormone 1.44 uIU/mL (0.32-4.0)
[2022-09-20 13:24] LABS: Folate 9.6 ng/mL (> or = 4.0); Vitamin B12 1348 pg/mL (200-900)
== END 2022-09-20 10:25 | disposition home or self-care (01) ==
LOC: HO.LAB 10:24
PROVIDERS: Internal Medicine Medical Oncology; Absent Provider Internal Medicine; PCP Internal Medicine; Visit Provider Surgery
DX: C50.911 Malignant neoplasm of unspecified site of right female breast (principal); E78.00 Pure hypercholesterolemia, unspecified
CPT/HCPCS: 36415; 80053; 80061; 82607; 82746; 84439; 84443; 85025; 99212

== ENCOUNTER 2023-03-29 15:19 | Outpatient (AMB) | payer MEDICARE, SELFPAY ==
[2023-03-29 15:21] VITALS: BP 110/56; PULSE 91; BMI 20.8
--- NOTE | 2023-03-29 15:21 | A.OFFVIS_ITS ---
Intake Vital Signs 03/29/23 15:21 Height 5 ft 4 in Weight 121 lb BMI 20.8 BP 110/56 L Blood Pressure Location Rt brachial Position Sitting Pulse 91 Intake Visit Reasons: 6 mth breast exam Intake Note: This patient presents for a six month follow-up breast examination assessment. Patient denies breast complaints at this time. Radio Repairer Required: No Accompanied by: Son (HCP) Allergies No Known Allergies [No Known Allergies*] Allergy (Verified 03/29/23 15:22) HPI 6 mth breast exam HPI Details She here for follow-up for her history of right breast cancer.? She had undergone lumpectomy and sentinel biopsy for invasive ductal cancer on the right breast last June,.? She had a T1 N0 cancer at that time.? She has completed radiation treatment to the breast.? She is on letrozole as her tumor was ER OR positive. She denies any palpable masses at this time. She says she feels well overall. Her last mammogram was last June,. [facility] Medical History Abnormal mammogram of right breast Breast cancer screening by mammogram Cholecystoduodenal fistula History of renal calculi Hypercholesterolemia Hypertension Impaired glucose tolerance Invasive ductal carcinoma of right breast Overweight (BMI 25.0-29.9) Rosacea Tubular adenoma of colon Surgical History H/O breast biopsy History of cystoscopy History of laparotomy History of lumpectomy of right breast (~2020) History of rectal polypectomy Family History Family/Other Medical history unknown Father Cancer Social History Household Members: Spouse Housing: House Are you a primary post acute care nurse practitioner to a significant other at home: No Do you presently have visiting nurse or other home services: No Alcohol intake: current Alcohol intake frequency: does not drink Patient Tobacco Use Status: Never used Tobacco e-Cigarette/Vaping Use: Never Used service: No Current occupational status: employed Cognitive needs: No Hearing needs: No Vision needs: Yes Female Reproductive History Menstrual Age of Menarche: 11 Review of Systems Const Denies chills and Denies fever(s) Card Denies chest pain, Denies dyspnea and Denies dyspnea on exertion Resp Denies cough, Denies dyspnea and Denies dyspnea on exertion GI Denies hematochezia and Denies change in bowel habits Denies hematuria Musc Denies back pain and Denies limited range of motion Neuro Denies focal weakness and Denies convulsions Psych Denies depression and Denies mood swings Physical Exam Vital Signs: Last Vital Signs Pulse 91 03/29/23 15:21 BP 110/56 L 03/29/23 15:21 BMI result Body Mass Index 20.8 Const General: comfortable and no acute distress Orientation/consciousness: patient oriented x3 Neck Neck: Yes no lymphadenopathy Chest Other: No palpable breast masses, no axillary lymphadenopathy, no nipple or skin changes Resp Auscultation: clear to auscultation bilaterally Cardio Rhythm: regular rhythm GI Palpation (GI): Soft to palpation, nontender and no guarding Neuro General: patient oriented x3 Assessment & Plan Assessment & Plan (1) History of right breast cancer: Code(s): Z85.3 - Personal history of malignant neoplasm of breast Plan: Physical exam does not reveal any new masses. She is due for her next mammogram this June,. This has been ordered I can see her in the office in about 6 months otherwise. She is doing well overall. She is also to continue to follow-up with Dr. Prado. Her son was with her during the visit. Orders: Orders MM tomosynthesis screen imp BI Today Z85.3 - Personal history of malignant neoplasm of breast Coding Level of Care Code Est Pt Level 3 (82457) Diagnoses History of right breast cancer Z85.3
== END 2023-03-29 15:52 | disposition home or self-care (01) ==
PROVIDERS: PCP Internal Medicine; Visit Provider Surgery
DX: Z85.3 Personal history of malignant neoplasm of breast (principal)
CPT/HCPCS: 99213

== ENCOUNTER → 2023-03-29 15:19 | Outpatient (BNVA) | payer MEDICARE, SELFPAY | PROVIDERS: PCP Internal Medicine; Visit Provider Surgery | DX: Z85.3 Personal history of malignant neoplasm of breast (principal) | CPT/HCPCS: 99212 ==

== ENCOUNTER 2023-04-30 14:16 | Outpatient (AMB) | payer MEDICARE, SELFPAY ==
--- NOTE | 2023-04-30 14:34 | MHC.PC.OV ---
Vital Signs 04/30/23 14:35 Height 5 ft 4 in Weight 117 lb BMI 20.1 BP 136/82 Blood Pressure Location Lt brachial Position Sitting Pulse 78 Pulse Source Pulse Oximeter Temp Source Skin Pulse Oximetry (%) 96 Oxygen Delivery Method Room Air Intake Visit Reasons: 2mth f/u Intake Note: Patient is here to follow up on 2 months Allergies No Known Allergies [No Known Allergies*] Allergy (Verified 04/30/23 14:37) Tobacco use date assessed: 04/30/23 Fall risk assessment: No Falls in past year Last assessed Fall Risk: 04/30/23 Dental Screening Dental Screen Date: 04/30/23 HPI 2mth f/u HPI Details 77-year-old female with Alzheimer's dementia hypertension hypercholesterolemia impaired glucose tolerance CVA l and history of right breast cancer last seen in February 2023 coming in for follow-up. Patient was started on donepezil and sertraline. Patient is here for follow-up. Recently family is sent message that patient was having nausea and vomiting and diarrhea. Has advised to stop the medication and see if it helps. seen gyne and wants pelvic US- awaiting schedule. MOLST form sent. For the BP advised to monbitor for now and record [facility] Medical History Abnormal mammogram of right breast Breast cancer screening by mammogram Cholecystoduodenal fistula History of renal calculi Hypercholesterolemia Hypertension Impaired glucose tolerance Invasive ductal carcinoma of right breast Overweight (BMI 25.0-29.9) Rosacea Tubular adenoma of colon Surgical History H/O breast biopsy History of cystoscopy History of laparotomy History of lumpectomy of right breast (~2020) History of rectal polypectomy Family History Family/Other Medical history unknown Father Cancer Social History Household Members: Spouse Housing: House Are you a primary pharmacy care coordinator to a significant other at home: No Do you presently have visiting nurse or other home services: No Alcohol intake: current Alcohol intake frequency: does not drink Patient Tobacco Use Status: Never used Tobacco e-Cigarette/Vaping Use: Never Used service: No Current occupational status: employed Cognitive needs: No Hearing needs: No Vision needs: Yes Female Reproductive History Menstrual Age of Menarche: 11 Questionnaire Thrive Questionnaire Date Thrive assessed: 02/27/23 AUDIT C Alcohol Use Questionnaire (AUDIT-C) 1. How often do you have a drink containing alcohol?: Monthly or less 2. How many drinks containing alcohol do you have on a typical day when you are drinking?: 1 or 2 3. How often do you have six or more drinks on one occasion?: Never Total Score: 1 MATTEO-7 AMB Questionnaire MATTEO-7 Date MATTEO - 7 assessed: 02/27/23 Feeling nervous, anxious, or on edge: 0 = Not at all Not being able to stop or control worryin = Not at all Worrying too much about different things: 0 = Not at all Trouble relaxin = Not at all Being so restless that it is hard to sit still: 0 = Not at all Becoming easily annoyed or irritable: 0 = Not at all Feeling afraid as if something awful might happen: 0 = Not at all Total MATTEO-7 score (0-4 normal; 5-9 mild; 10-14 moderate; 15-21 severe): 0 Source: Developed by Drs. Wu Bell, Roberta Olsen, Jayme Storey and colleagues, with an educational jhonny from [employer]. Physical exam (Primary Care) Vital Signs: Last Vital Signs Pulse 78 04/30/23 14:35 BP 136/82 04/30/23 14:35 Pulse Ox 96 04/30/23 14:35 Oxygen Delivery Method Room Air 04/30/23 14:35 BMI result Body Mass Index 20.1 Tobacco/Smoking Status: Tobacco use Status Tobacco use date assessed 04/30/23 04/30/23 14:41 Patient Tobacco Use Status Never used Tobacco 04/30/23 14:35 e-Cigarette/Vaping Use Never Used 04/30/23 14:35 Thrive Assessment: Date of Thrive Assessment Date Thrive assessed 02/27/23 04/30/23 14:35 Const General: alert; No acute distress Eyes Conjunctivae: conjunctivae normal Resp Auscultation: clear to auscultation bilaterally Cardio Rate: regular rate Rhythm: regular rhythm GI Inspection: Yes normal to inspection Extrem General: Yes normal to inspection and No edema Assessment and Plan Assessment & Plan (1) Hypercholesterolemia: Code(s): E78.00 - Pure hypercholesterolemia, unspecified Plan: Avoid fried foods, chicken skin, eggs, butter margarine, pastries and meat. Be it pork or beef they have a lot of cholesterol patient is on simvastatin 40 mg once a day (2) Hypertension: Code(s): I10 - Essential (primary) hypertension Qualifiers: Hypertension type: essential hypertension Qualified Code(s): I10 - Essential (primary) hypertension Plan: . Decrease salt intake and exercise hel for the moment due to n and v. (3) CVA (cerebral vascular accident): Comment: May [address] scan No acute findings. Mild generalized atrophy and nonspecific periventricular white matter disease. Old right basal ganglia lacunar infarct. Code(s): I63.9 - Cerebral infarction, unspecified Plan: Control the cholesterol, weight, blood pressure (4) Alzheimer's dementia: Code(s): G30.9 - Alzheimer's disease, unspecified; F02.80 - Dementia in other diseases classified elsewhere, unspecified severity, without behavioral disturbance, psychotic disturbance, mood disturbance, and anxiety Plan: supportive treatment (5) Constipation: Code(s): K59.00 - Constipation, unspecified Plan: stool softener sent. Three rules for constipation 1. Diet need to have a high fiber diet less of meat 2. Increase oral fluids 3. Exercise Medications: New sennosides-docusate sodium 8.6-50 mg (Senna-S) 1 tab-cap PO BEDTIME 30 tabs 0RF K59.00 - Constipation, unspecified Discontinued donepezil (Aricept) Discontinued Reason: Ancillary Entered New Order 5 mg PO BEDTIME 30 tabs 2RF F02.80 - Dementia in other diseases classified elsewhere, unspecified severity, without behavioral disturbance, psychotic disturbance, mood disturbance, and anxiety, G30.9 - Alzheimer's disease, unspecified On Hold lisinopril Hold Comment: diarrhea 10 mg PO DAILY 90 tabs 3RF Coding Level of Care Code Est Pt Level 4 (32755) Diagnoses Hypercholesterolemia E78.00 Hypertension I10 Hypertension type: essential hypertension CVA (cerebral vascular accident) I63.9 Alzheimer's dementia G30.9; F02.80 Constipation K59.00
[2023-04-30 14:35] VITALS: BP 136/82; PULSE 78; O2SAT 96; BMI 20.1
== END 2023-04-30 15:11 | disposition home or self-care (01) ==
PROVIDERS: PCP Internal Medicine; Visit Provider Internal Medicine
DX: I10 Essential (primary) hypertension (principal); Z86.73 Personal history of transient ischemic attack (TIA), and cerebral infarction without residual deficits; G30.9 Alzheimer's disease, unspecified; F02.80 Dementia in other diseases classified elsewhere, unspecified severity, without behavioral disturbance, psychotic disturbance, mood disturbance, and anxiety; E78.00 Pure hypercholesterolemia, unspecified; K59.00 Constipation, unspecified
CPT/HCPCS: 99214

== ENCOUNTER 2023-05-18 08:04 | Outpatient (AMB) | payer MEDICARE, SELFPAY ==
--- NOTE | 2023-05-18 08:22 | A.OFFPC_ITS ---
Vital Signs 05/18/23 08:23 Height 5 ft 4 in Weight 115 lb BMI 19.7 BP 122/62 Blood Pressure Location Lt brachial Position Sitting Pulse 75 Pulse Source Pulse Oximeter Pulse Oximetry (%) 97 Oxygen Delivery Method Room Air Intake Visit Reasons: [facility] bilateral knee Allergies No Known Allergies [No Known Allergies*] Allergy (Verified 05/18/23 08:24) Tobacco use date assessed: 04/30/23 Fall risk assessment: 1 Fall in past year Last assessed Fall Risk: 05/18/23 Dental Screening Dental Screen Date: 05/18/23 Did you have a dental visit in the last 12 months?: No Did you have a dental problem in the last 6 months where you did not have access to dental care?: No Was dental information given to patient?: No HPI HPI Comments History of Present Illness Details 69-year-old female past medical history significant for hypercholesteremia, hypertension, impaired glucose tolerance, right breast CA, CVA and Alzheimer's. Patient Dr. Hall, presents today for ER follow-up from [facility] 05/05/23 for bilateral knee pain patient was walking down a slope when she lost her balance and fell, denied loss of consciousness patient reported that she was able to get right back up in walked into the house. Following this she was walking down her stairs and had a sudden onset of pain down bilateral knees. There was noted edema to right knee no ecchymosis, rocking of testing was negative in the emergency room. Bilateral knee x-ray showed no evident fracture dislocation. Loss joint space in the retropatellar region as well as in the medial compartment of the knees. Patient was recommended to use a walker upon discharge. Patient presents today denies right knee pain at this time states it only happens occasionally. Patient son accompanied her to this appointment states she does take ibuprofen as needed for the pain. Patient continues to ambulate with a walker and uses the knee immobilizer with ambulation. Patient and son was told that she was advised to use walker and knee immobilizer until her knees feeling better. [facility] Medical History Abnormal mammogram of right breast Breast cancer screening by mammogram Cholecystoduodenal fistula History of renal calculi Hypercholesterolemia Hypertension Impaired glucose tolerance Invasive ductal carcinoma of right breast Overweight (BMI 25.0-29.9) Rosacea Tubular adenoma of colon Surgical History H/O breast biopsy History of cystoscopy History of laparotomy History of lumpectomy of right breast (~2020) History of rectal polypectomy Family History Family/Other Medical history unknown Father Cancer Social History Household Members: Spouse Housing: House Are you a primary career services coordinator to a significant other at home: No Do you presently have visiting nurse or other home services: No Alcohol intake: current Alcohol intake frequency: does not drink Patient Tobacco Use Status: Never used Tobacco e-Cigarette/Vaping Use: Never Used service: No Current occupational status: employed Cognitive needs: No Hearing needs: No Vision needs: Yes Female Reproductive History Menstrual Age of Menarche: 11 Questionnaire PHQ-9 Over the last 2 weeks, how often have you been bothered by any of the following problems? 1. Little interest or pleasure in doing things: several days 2. Feeling down, depressed, or hopeless: several days 3. Trouble falling or staying asleep, or sleeping too much: nearly every day 4. Feeling tired or having little energy: nearly every day 5. Poor appetite or overeating: not at all 6. Feeling bad about yourself - or that you are a failure or have let yourself or your family down: not at all 7. Trouble concentrating on things, such as reading the newspaper or watching television: not at all 8. Moving or speaking so slowly that other people could have noticed. Or the opposite - being so fidgety or restless that you have been moving around a lot more than usual: not at all 9. Thoughts that you would be better off or of hurting yourself in some way: not at all Total score: 8 Depression Screening Interpretation: Positive Source: Developed by Drs. Wu Bell, Roberta Olsen, Jayme Storey and colleagues, with an educational jhonny from [employer]. Thrive Questionnaire Date Thrive assessed: 02/27/23 AUDIT C Alcohol Use Questionnaire (AUDIT-C) 1. How often do you have a drink containing alcohol?: Monthly or less 2. How many drinks containing alcohol do you have on a typical day when you are drinking?: 1 or 2 3. How often do you have six or more drinks on one occasion?: Never Total Score: 1 MATTEO-7 AMB Questionnaire MATTEO-7 Date MATTEO - 7 assessed: 02/27/23 Source: Developed by Drs. Wu Bell, Roberta Olsen, Jayme Storey and colleagues, with an educational jhonny from [employer]. Review of Systems Const Denies chills, Denies fatigue, Denies fever(s) and Denies poor appetite Eyes Denies no additional complaints ENT Reports Normal hearing present Card Denies chest pain, Denies syncope, Denies rapid heart rate and Denies dyspnea Resp Denies cough and Denies dyspnea GI Denies change in stool character, Denies constipation, Denies diarrhea, Denies nausea and Denies vomiting Denies urinary frequency, Denies dysuria and Denies urinary urgency Neuro Reports Normal hearing present, Denies confusion and Denies syncope Psych Denies confusion Endo Denies fatigue Physical exam (Primary Care) Vital Signs: Last Vital Signs Pulse 75 05/18/23 08:23 BP 122/62 05/18/23 08:23 Pulse Ox 97 05/18/23 08:23 Oxygen Delivery Method Room Air 05/18/23 08:23 BMI result Body Mass Index 19.7 Tobacco/Smoking Status: Tobacco use Status Tobacco use date assessed 04/30/23 05/18/23 08:29 Patient Tobacco Use Status Never used Tobacco 05/18/23 08:29 e-Cigarette/Vaping Use Never Used 05/18/23 08:29 PHQ-9: PHQ-9 Score PHQ-9: Total score 8 05/18/23 08:39 Depression Screening Interpretation: Positive Thrive Assessment: Date of Thrive Assessment Date Thrive assessed 02/27/23 05/18/23 08:29 Const General: No confusion Orientation/consciousness: No confusion HENMT Head: Yes normocephalic and Yes atraumatic Eyes Conjunctivae: conjunctivae normal Chest Chest palpation & inspection: normal inspection of the chest Resp Effort & Inspection: normal respiratory effort Auscultation: clear to auscultation bilaterally, no crackles, no rhonchi and no wheezes Cardio Rate: regular rate Rhythm: regular rhythm Heart sounds: S1 normal heart sound present and S2 normal heart sound present GI Inspection: Yes normal to inspection Neuro General: No confusion Cranial nerves: Yes Normal hearing present Extrem General: No edema Right lower extremity: normal to inspection, normal capillary refill and knee Details: normal to inspection, normal ROM, knee ligament exam normal and ecchymosis (Dark purple ecchymoses noted to posterior medial side of knee.); no tenderness and no swelling Left lower extremity: normal to inspection and full ROM Assessment and Plan Assessment & Plan (1) Right knee pain: Code(s): M25.561 - Pain in right knee Plan: Patient can continue to take Tylenol or ibuprofen with food as needed for pain. Will refer patient to physical therapy and orthopedic. (2) Alzheimer's dementia: Code(s): G30.9 - Alzheimer's disease, unspecified; F02.80 - Dementia in other diseases classified elsewhere, unspecified severity, without behavioral disturbance, psychotic disturbance, mood disturbance, and anxiety (3) Hypertension: Code(s): I10 - Essential (primary) hypertension Qualifiers: Hypertension type: essential hypertension Qualified Code(s): I10 - Essential (primary) hypertension Plan: Continue on lisinopril 10 mg daily. Follow low-salt diet and exercise (4) Hypercholesterolemia: Code(s): E78.00 - Pure hypercholesterolemia, unspecified Plan: Continue on simvastatin 40 mg daily. Avoid fried foods, chicken skin, eggs, butter,margarine, pastries and? red meat. Plan Keep upcoming physical exam at the end of this month. Orders: Orders PT Evaluation and Treatment Today M25.561 - Pain in right knee Referrals Orthopedics Referral M25.561 - Pain in right knee Coding Level of Care Code Est Pt Level 4 (40967) Diagnoses Right knee pain M25.561 Alzheimer's dementia G30.9; F02.80 Hypertension I10 Hypertension type: essential hypertension Hypercholesterolemia E78.00 Additional Codes PHQ-9 - 54504 - PHQ-9 Billing: Y ([id number])
[2023-05-18 08:23] VITALS: BP 122/62; PULSE 75; O2SAT 97; BMI 19.7
== END 2023-05-18 08:51 | disposition home or self-care (01) ==
PROVIDERS: PCP Internal Medicine; Visit Provider Nurse Practitioner Family
DX: I10 Essential (primary) hypertension (principal); G30.9 Alzheimer's disease, unspecified; F02.80 Dementia in other diseases classified elsewhere, unspecified severity, without behavioral disturbance, psychotic disturbance, mood disturbance, and anxiety; M25.561 Pain in right knee; E78.00 Pure hypercholesterolemia, unspecified
CPT/HCPCS: 99214

== ENCOUNTER 2023-05-24 07:41 | Outpatient (REF) | payer MEDICARE, SELFPAY ==
--- NOTE | ~2023-05-24 | XR_ITS ---
EXAMINATION: XR KNEE, RIGHT CLINICAL INFORMATION: Pain. COMPARISON: None available. TECHNIQUE: Three views of the right knee. FINDINGS: The patella sunrise image is suboptimal. Cannot exclude some mild lateralization. There is a moderate-sized joint effusion. Moderate degenerative change at the patellofemoral articulation and significant degeneration in the medial compartment with joint space loss and marginal spurring. The lateral compartment is preserved. XR/XR knee RT 3V IMPRESSION: Moderate bordering marked degeneration as described with moderate effusion.
== END 2023-05-24 07:42 | disposition home or self-care (01) ==
LOC: HO.HOSX 07:41
PROVIDERS: Visit Provider Orthopaedic Surgery
DX: M17.11 Unilateral primary osteoarthritis, right knee (principal)
CPT/HCPCS: 73562; 99202

== ENCOUNTER 2023-05-24 12:07 | Outpatient (AMB) | payer MEDICARE, SELFPAY ==
--- NOTE | 2023-05-24 12:27 | MHC.OFFVIS ---
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 This pain comes and goes. She had a fall 3 weeks ago and is now using a walker and a knee immobilizer brace. Her son Caleb is with her today and is providing some information as well. Patient does not recall the events leading up to her fall. She thinks that her right knee may have buckled. She denies any other injuries. She reports mild intermittent discomfort in her right knee. Allergies No Known Allergies [No Known Allergies*] Allergy (Verified 05/18/23 08:24) Medication List - Last Reconciled 05/24/23 by Enma Recinos RN aspirin (Adult Aspirin Regimen) 81 mg PO DAILY biotin 1 mg PO DAILY cholecalciferol (vitamin D3) 25 mcg PO DAILY flaxseed oil 1,000 mg PO DAILY letrozole 2.5 mg PO DAILY lisinopril 10 mg PO DAILY pyridoxine (vitamin B6) (Vitamin B-6) 100 mg PO DAILY sennosides-docusate sodium 8.6-50 mg (Senna-S) 1 tab-cap PO BEDTIME sertraline 25 mg PO DAILY simvastatin 40 mg PO QPM 90 days vitamins A,C,J-snwk-mjavye 4,296 mcg-226 mg-90 mg (PreserVision AREDS) 1 cap PO BID PFSH Medical History Abnormal mammogram of right breast Breast cancer screening by mammogram Cholecystoduodenal fistula History of renal calculi Hypercholesterolemia Hypertension Impaired glucose tolerance Invasive ductal carcinoma of right breast Overweight (BMI 25.0-29.9) Rosacea Tubular adenoma of colon Surgical History H/O breast biopsy History of cystoscopy History of laparotomy History of lumpectomy of right breast (~2020) History of rectal polypectomy Family History Family/Other Medical history unknown Father Cancer Social History Household Members: Spouse Housing: House Are you a primary director of healthcare systems to a significant other at home: No Do you presently have visiting nurse or other home services: No Alcohol intake: current Alcohol intake frequency: does not drink Patient Tobacco Use Status: Never used Tobacco e-Cigarette/Vaping Use: Never Used service: No Current occupational status: employed Cognitive needs: No Hearing needs: No Vision needs: Yes Female Reproductive History Menstrual Age of Menarche: 11 Physical Exam Const Other: Well-nourished well-developed very friendly female awake alert and oriented x3 in no acute distress Extrem Other: Bilateral lower extremity examination shows good capillary refill, no skin lesions noted, normal sensation light touch Right knee examination shows a minimal effusion, palpable crepitus with range of motion, pain with range of motion, range of motion from -3 degrees to 115 degrees, no instability Results Reviewed Results Reviewed: X-rays of the patient's right knee show severe joint space narrowing with grade 4 [id number] arthritis in the medial compartment, no acute bony abnormalities Assessment & Plan Assessment & Plan (1) Arthritis of right knee: Code(s): M17.11 - Unilateral primary osteoarthritis, right knee Plan: presents with right knee discomfort and mechanical symptoms due to degenerative joint disease. I had a lengthy discussion with the patient regarding the treatment options. At this point the patient's discomfort is tolerable to her. We will hold off on a cortisone injection. I did have her fitted with a knee brace to help give her support. I do feel that the brace is a medical necessity to help prevent further falls. The patient will contact me prior to her follow-up appointment in 2-3 months should any questions or concerns arise. Feel free to call me at any time should questions regarding her orthopedic management arise. Thank you very much for asking me to see this very friendly patient. I spent 22 minutes in reviewing the patient's records and imaging studies, seeing the patient and documenting in the medical record. Orders: Orders XR knee RT 3V Today M25.561 - Pain in right knee Coding Level of Care Code New Pt Level 2 (15480) Diagnoses Arthritis of right knee M17.11
== END 2023-05-24 12:54 | disposition home or self-care (01) ==
PROVIDERS: PCP Internal Medicine; Visit Provider Orthopaedic Surgery
DX: M17.11 Unilateral primary osteoarthritis, right knee (principal)
CPT/HCPCS: 99202

== ENCOUNTER 2023-06-06 11:22 | Outpatient (AMB) | payer MEDICARE, SELFPAY ==
[2023-06-06 11:27] VITALS: BP 120/68; PULSE 77; O2SAT 97; BMI 19.7
--- NOTE | 2023-06-06 11:27 | A.OFFPC_ITS ---
Vital Signs 06/06/23 11:27 Height 5 ft 4 in Weight 115 lb BMI 19.7 BP 120/68 Blood Pressure Location Lt brachial Position Sitting Pulse 77 Pulse Source Pulse Oximeter Pulse Oximetry (%) 97 Oxygen Delivery Method Room Air Intake Visit Reasons: PE Allergies No Known Allergies [No Known Allergies*] Allergy (Verified 06/06/23 11:27) Medication List - Last Reconciled 06/06/23 by Isamar Hall MD aspirin (Adult Aspirin Regimen) 81 mg PO DAILY biotin 1 mg PO DAILY cholecalciferol (vitamin D3) 25 mcg PO DAILY flaxseed oil 1,000 mg PO DAILY letrozole 2.5 mg PO DAILY pyridoxine (vitamin B6) (Vitamin B-6) 100 mg PO DAILY sennosides-docusate sodium 8.6-50 mg (Senna-S) 2 tab-caps (2 x 8.6-50 mg) PO BEDTIME 30 days sertraline 25 mg PO DAILY simvastatin 40 mg PO QPM 90 days vitamins A,C,E-zjih-qjlsad 4,296 mcg-226 mg-90 mg (PreserVision AREDS) 1 cap PO BID Tobacco use date assessed: 04/30/23 Fall risk assessment: 1 Fall in past year Last assessed Fall Risk: 06/06/23 Dental Screening Dental Screen Date: 06/06/23 Did you have a dental visit in the last 12 months?: No Did you have a dental problem in the last 6 months where you did not have access to dental care?: No Was dental information given to patient?: No HPI PE HPI Details 77-year-old female with dementia hyperte nsion hypercholesterolemia right breast cancer, history of CVA last seen in May 2023. coming in for physical. Review of the notes was seen by the orthopedic recently for right knee pain had a fall 3 weeks ago diagnosis of unilateral arthritis and x-ray requested knee brace given, marked degeneration with moderate joint effusion.. Review of the notes March 2023 was in [facility] complaining of abdominal pain patient has a history of cholecystoduodenal fistula son also noted an enlarged uterus. Diagnosis of mild enteritis. did see gyne- - biopsy done yesterday.- was told by medical office technology instructor- no need to do. occ diarrhea still= complains of no stool PFSH Medical History Abnormal mammogram of right breast Breast cancer screening by mammogram Cholecystoduodenal fistula History of renal calculi Hypercholesterolemia Hypertension Impaired glucose tolerance Invasive ductal carcinoma of right breast Overweight (BMI 25.0-29.9) Rosacea Tubular adenoma of colon Surgical History H/O breast biopsy History of cystoscopy History of laparotomy History of lumpectomy of right breast (~2020) History of rectal polypectomy Family History Family/Other Medical history unknown Father Cancer Social History Household Members: Spouse Housing: House Are you a primary health care marketing specialist to a significant other at home: No Do you presently have visiting nurse or other home services: No Alcohol intake: current Alcohol intake frequency: does not drink Patient Tobacco Use Status: Never used Tobacco e-Cigarette/Vaping Use: Never Used service: No Current occupational status: employed Cognitive needs: No Hearing needs: No Vision needs: Yes Female Reproductive History Menstrual Age of Menarche: 11 Questionnaire PHQ-9 Over the last 2 weeks, how often have you been bothered by any of the following problems? 1. Little interest or pleasure in doing things: several days 2. Feeling down, depressed, or hopeless: several days 3. Trouble falling or staying asleep, or sleeping too much: nearly every day 4. Feeling tired or having little energy: nearly every day 5. Poor appetite or overeating: not at all 6. Feeling bad about yourself - or that you are a failure or have let yourself or your family down: not at all 7. Trouble concentrating on things, such as reading the newspaper or watching television: not at all 8. Moving or speaking so slowly that other people could have noticed. Or the opposite - being so fidgety or restless that you have been moving around a lot more than usual: not at all 9. Thoughts that you would be better off or of hurting yourself in some way: not at all Total score: 8 Depression Screening Interpretation: Positive Source: Developed by Drs. Wu Bell, Roberta Olsen, Jayme Storey and colleagues, with an educational jhonny from [employer]. Thrive Questionnaire Date Thrive assessed: 02/27/23 AUDIT C Alcohol Use Questionnaire (AUDIT-C) 1. How often do you have a drink containing alcohol?: Monthly or less 2. How many drinks containing alcohol do you have on a typical day when you are drinking?: 1 or 2 3. How often do you have six or more drinks on one occasion?: Never Total Score: 1 MATTEO-7 AMB Questionnaire MATTEO-7 Date MATTEO - 7 assessed: 02/27/23 Source: Developed by Drs. Wu Bell, Roberta Olsen, Jayme Storey and colleagues, with an educational jhonny from [employer]. Review of Systems Const Denies poor appetite and Denies weakness Eyes Denies no additional complaints ENT Reports Normal hearing present, Denies dizziness, Denies nasal congestion, Denies tinnitus and Denies sore throat Card Denies chest pain, Denies syncope, Denies rapid heart rate and Denies dyspnea Resp Denies cough and Denies dyspnea GI Denies change in stool character, Reports constipation, Denies diarrhea, Denies nausea and Denies vomiting Denies urinary frequency, Denies difficulty voiding and Denies dysuria Neuro Reports Normal hearing present, Denies confusion, Denies dizziness, Denies syncope and Denies weakness Psych Denies confusion Physical exam (Primary Care) Vital Signs: Last Vital Signs Pulse 77 06/06/23 11:27 BP 120/68 06/06/23 11:27 Pulse Ox 97 06/06/23 11:27 Oxygen Delivery Method Room Air 06/06/23 11:27 BMI result Body Mass Index 19.7 Tobacco/Smoking Status: Tobacco use Status Tobacco use date assessed 04/30/23 06/06/23 11:28 Patient Tobacco Use Status Never used Tobacco 06/06/23 11:28 e-Cigarette/Vaping Use Never Used 06/06/23 11:28 PHQ-9: PHQ-9 Score PHQ-9: Total score 8 06/06/23 11:34 Depression Screening Interpretation: Positive Thrive Assessment: Date of Thrive Assessment Date Thrive assessed 02/27/23 06/06/23 11:28 Const General: No confusion Orientation/consciousness: No confusion HENMT Head: Yes normocephalic Ears: external ears normal and TM's normal bilaterally Face and sinus: Yes normal facial exam Mouth: moist mucous membranes Throat: Yes tonsils normal Eyes Conjunctivae: conjunctivae normal Pupils: Equal, round and reactive pupils present and Pupil accommodation reflex normal Direct Ophthalmoscopy: normal light reflex Neck Neck: No lymphadenopathy Thyroid: Thyroid normal Chest Chest palpation & inspection: normal inspection of the chest Resp Effort & Inspection: normal respiratory effort and no audible wheezes Auscultation: clear to auscultation bilaterally, no crackles, no wheezes and lung sounds not diminished Cardio Rate: regular rate Rhythm: regular rhythm Peripheral pulses: radial pulses present and dorsalis pedis present GI Other: guaiac negative Palpation (GI): no masses Auscultation: normal bowel sounds and normoactive bowel sounds Rectal Exam - Female: deferred Skin General skin exam: no rashes or lesions noted Rashes: no rashes Neuro General: No confusion Cranial nerves: Yes Equal, round and reactive pupils present and Yes Normal hearing present Cognition (Neuro): normal cognition Gait exam (Neuro): Normal gait present Motor exam (neuro): 5/5 motor strength present throughout Deep tendon reflexes (DTR's): Right brachioradialis reflex intensity grade: 2+, Left brachioradialis reflex intensity grade: 2+, Right patellar reflex intensity grade: 2+ and Left patellar reflex intensity grade: 2+ Extrem General: No edema Assessment and Plan Assessment & Plan (1) Annual physical exam: Code(s): Z00.00 - Encounter for general adult medical examination without abnormal findings (2) Hypertension: Code(s): I10 - Essential (primary) hypertension Qualifiers: Hypertension type: essential hypertension Qualified Code(s): I10 - Essential (primary) hypertension Plan: BP has been controlled after loosing weight. No more need for blood pressure medication (3) Hypercholesterolemia: Code(s): E78.00 - Pure hypercholesterolemia, unspecified Plan: Avoid fried foods, chicken skin, eggs, butter margarine, pastries and meat. Be it pork or beef they have a lot of cholesterol on simvastatin 40 mg once a day September 2022 last blood work LDL 100 (4) Impaired glucose tolerance: Code(s): R73.02 - Impaired glucose tolerance (oral) Plan: Decrease the amount of carbohydrate intake, pasta, bread, rice and potatoes are all sugar and that is aside from all the sweet stuff, remember that fruits are good but they are Sweet also. (5) Invasive ductal carcinoma of right breast: Comment: Breast lumpectomy July 2021 Code(s): C50.911 - Malignant neoplasm of unspecified site of right female breast Plan: Patient presently on letrozole needs to have a mammogram follow-up (6) CVA (cerebral vascular accident): Comment: May [address] scan No acute findings. Mild generalized atrophy and nonspecific periventricular white matter disease. Old right basal ganglia lacunar infarct. Code(s): I63.9 - Cerebral infarction, unspecified Plan: Continue with aspirin 81 mg once a (7) Alzheimer's dementia: Code(s): G30.9 - Alzheimer's disease, unspecified; F02.80 - Dementia in other diseases classified elsewhere, unspecified severity, without behavioral disturbance, psychotic disturbance, mood disturbance, and anxiety Plan: Supportive treatment (8) Uterine enlargement: Code(s): N85.2 - Hypertrophy of uterus Orders: Orders Comprehensive Met. Panel 4 Months E78.00 - Pure hypercholesterolemia, unspecified UA w Microscopic 4 Months E78.00 - Pure hypercholesterolemia, unspecified Complete Blood Count Auto Diff 4 Months E78.00 - Pure hypercholesterolemia, unspecified Free T4 (Free Thyroxine) 4 Months E78.00 - Pure hypercholesterolemia, unspecified Thyroid Stimulating Hormone 4 Months E78.00 - Pure hypercholesterolemia, unspecified Vitamin B12 and Folate 4 Months E78.00 - Pure hypercholesterolemia, unspecified Lipid Panel 4 Months E78.00 - Pure hypercholesterolemia, unspecified Vitamin D 25-OH Total 4 Months E78.00 - Pure hypercholesterolemia, unspecified Medications: Changed From sennosides-docusate sodium 8.6-50 mg (Senna-S) 1 tab-cap PO BEDTIME 30 tabs 0RF K59.00 - Constipation, unspecified To sennosides-docusate sodium 8.6-50 mg (Senna-S) 2 tab-caps (2 x 8.6-50 mg) PO BEDTIME 30 days 60 tabs 5RF K59.00 - Constipation, unspecified Coding Level of Care Code Est Pt Prev Care >65y(30251) Diagnoses Annual physical exam Z00.00 Essential hypertension I10 Hypertension type: essential hypertension Hypercholesterolemia E78.00 Impaired glucose tolerance R73.02 Invasive ductal carcinoma of right breast C50.911 CVA (cerebral vascular accident) I63.9 Alzheimer's dementia G30.9; F02.80 Uterine enlargement N85.2 Additional Codes PHQ-9 - 78112 - PHQ-9 Billing: ([id number])
== END 2023-06-06 12:35 | disposition home or self-care (01) ==
PROVIDERS: PCP Internal Medicine; Visit Provider Internal Medicine
DX: Z00.00 Encounter for general adult medical examination without abnormal findings (principal); I10 Essential (primary) hypertension; C50.911 Malignant neoplasm of unspecified site of right female breast; I63.9 Cerebral infarction, unspecified; G30.9 Alzheimer's disease, unspecified; E78.00 Pure hypercholesterolemia, unspecified; R73.02 Impaired glucose tolerance (oral); F02.80 Dementia in other diseases classified elsewhere, unspecified severity, without behavioral disturbance, psychotic disturbance, mood disturbance, and anxiety; N85.2 Hypertrophy of uterus
CPT/HCPCS: 99397

== ENCOUNTER 2023-06-26 10:58 | Outpatient (REF) | payer MEDICARE, SELFPAY ==
--- NOTE | ~2023-06-26 | MM_ITS ---
EXAMINATION: MM DIAGNOSTIC DIGITAL BREAST TOMOSYNTHESIS, BILATERAL CLINICAL INFORMATION: Year 2 status post right breast IDC diagnosed 08/02/2021, status post
== END 2023-06-26 10:59 | disposition home or self-care (01) ==
LOC: HO.MAMMO 10:58
PROVIDERS: Visit Provider Internal Medicine
DX: Z85.3 Personal history of malignant neoplasm of breast (principal); Z98.890 Other specified postprocedural states; Z92.3 Personal history of irradiation
CPT/HCPCS: 77062; 77066

== ENCOUNTER → 2023-06-26 11:00 | Outpatient (BNV) | payer MEDICARE, SELFPAY | PROVIDERS: Visit Provider Radiology Diagnostic Radiology | DX: R92.323 Mammographic fibroglandular density, bilateral breasts (principal); R92.1 Mammographic calcification found on diagnostic imaging of breast | CPT/HCPCS: 77062; 77066; G0279 ==

== ENCOUNTER 2023-08-03 11:35 | Outpatient (AMB) | payer MEDICARE, SELFPAY ==
[2023-08-03 11:37] VITALS: BP 118/70; PULSE 78; O2SAT 98; BMI 20.1
--- NOTE | 2023-08-03 11:37 | A.OFFVIS_ITS ---
Intake Vital Signs 08/03/23 11:37 Height 5 ft 4 in Weight 117 lb 6 oz BMI 20.1 BP 118/70 Blood Pressure Location Lt brachial Position Sitting Pulse 78 Pulse Source Pulse Oximeter Pulse Oximetry (%) 98 Oxygen Delivery Method Room Air Intake Visit Reasons: Hypertension Eligibility And Occupancy Interviewer Required: No Accompanied by: Son Allergies No Known Allergies [No Known Allergies*] Allergy (Verified 08/03/23 11:43) Medication List - Last Reconciled 08/03/23 by Isamar Hall MD aspirin (Adult Aspirin Regimen) 81 mg PO DAILY biotin 1 mg PO DAILY cholecalciferol (vitamin D3) 25 mcg PO DAILY flaxseed oil 1,000 mg PO DAILY letrozole 2.5 mg PO DAILY pyridoxine (vitamin B6) (Vitamin B-6) 100 mg PO DAILY sertraline 50 mg PO DAILY simvastatin 40 mg PO QPM 90 days vitamins A,C,Q-dlvv-dnequg 4,296 mcg-226 mg-90 mg (PreserVision AREDS) 1 cap PO BID HPI Hypertension HPI Details 77-year-old female with a history of dem entia CVA right breast cancer hypertension and hypercholesterolemia last seen in May for physical exam coming in for follow-up. Patient's colonoscopy is up-to-date mammogram and bone density is due. Patient has been diagnosed as having right breast cancer in July 2021 follows up with Hematology-Oncology June 2023 for the osteopenia on Zometa for the breast cancer underwent right breast lumpectomy 2020 completed adjuvant radiation therapy October 2021 presently on letrozole since November 2021. Patient had also enlargement of the uterus and an endometrial biopsy done showing a trophic endometrium with fragments of endometrial polyp no atypia or malignancy. This was done in May 2023 otherwise patient has been doing good with no complaints no chest pains no shortness of breath no bowel bladder symptoms. [facility] Medical History (Updated 08/03/23 @ 11:54 by Isamar Hall MD) Hypertension Right knee pain Constipation Confusion History of right breast cancer Abnormal mammogram of right breast Breast calcification, right Cognitive impairment Memory deficit Overweight (BMI 25.0-29.9) Invasive ductal carcinoma of right breast Breast cancer screening by mammogram Impaired glucose tolerance Tubular adenoma of colon Cholecystoduodenal fistula History of renal calculi Rosacea Hypercholesterolemia Surgical History History of lumpectomy of right breast (~2020) History of rectal polypectomy History of laparotomy History of cystoscopy H/O breast biopsy Family History Family/Other Medical history unknown Father Cancer Social History Household Members: Spouse Housing: House Are you a primary lawn care technician to a significant other at home: No Do you presently have visiting nurse or other home services: No Alcohol intake: current Alcohol intake frequency: does not drink Patient Tobacco Use Status: Never used Tobacco e-Cigarette/Vaping Use: Never Used service: No Current occupational status: employed Cognitive needs: No Hearing needs: No Vision needs: Yes Female Reproductive History Menstrual Age of Menarche: 11 Physical Exam Vital Signs: Oxygen Delivery Method Room Air 08/03/23 11:37 BMI result Body Mass Index 20.1 Const General: alert; No acute distress Eyes Conjunctivae: conjunctivae normal Resp Auscultation: clear to auscultation bilaterally Cardio Rate: regular rate Rhythm: regular rhythm GI Inspection: Yes normal to inspection Extrem General: Yes normal to inspection and No edema Assessment & Plan Assessment & Plan (1) Alzheimer's dementia: Code(s): G30.9 - Alzheimer's disease, unspecified; F02.80 - Dementia in other diseases classified elsewhere, unspecified severity, without behavioral disturbance, psychotic disturbance, mood disturbance, and anxiety Plan: Conservative management/supportive (2) Invasive ductal carcinoma of right breast: Comment: Breast lumpectomy July 2021 Code(s): C50.911 - Malignant neoplasm of unspecified site of right female breast Plan: Patient follows up with hematology oncology June 2023 mammogram done (3) Osteopenia: Comment: June 2021 Code(s): M85.80 - Other specified disorders of bone density and structure, unspecified site Plan: Bone density is due (4) Impaired glucose tolerance: Code(s): R73.02 - Impaired glucose tolerance (oral) Plan: Decrease the amount of carbohydrate intake, pasta, bread, rice and potatoes are all sugar and that is aside from all the sweet stuff, remember that fruits are good but they are Sweet also. (5) Hypercholesterolemia: Code(s): E78.00 - Pure hypercholesterolemia, unspecified Plan: Avoid fried foods, chicken skin, eggs, butter margarine, pastries and meat. Be it pork or beef they have a lot of cholesterol on simvastatin 40 mg once a day (6) Uterine enlargement: Code(s): N85.2 - Hypertrophy of uterus Plan: Biopsy noted benign (7) Arthritis of right knee: Code(s): M17.11 - Unilateral primary osteoarthritis, right knee Plan: seeing ORtho and planned Injection Orders: Orders XR DEXA axial skeleton Today M81.0 - Age-related osteoporosis without current pathological fracture, M85.80 - Other specified disorders of bone density and structure, unspecified site Medications: Changed From sertraline 50 mg PO DAILY F02.80 - Dementia in other diseases classified elsewhere, unspecified severity, without behavioral disturbance, psychotic disturbance, mood disturbance, and anxiety, G30.9 - Alzheimer's disease, unspecified To sertraline 50 mg PO DAILY 90 days 90 tabs 2RF F02.80 - Dementia in other diseases classified elsewhere, unspecified severity, without behavioral disturbance, psychotic disturbance, mood disturbance, and anxiety, G30.9 - Alzheimer's disease, unspecified Coding Level of Care Code Est Pt Level 4 (62488) Diagnoses Alzheimer's dementia G30.9; F02.80 Invasive ductal carcinoma of right breast C50.911 Osteopenia M85.80 Impaired glucose tolerance R73.02 Hypercholesterolemia E78.00 Uterine enlargement N85.2 Arthritis of right knee M17.11
== END 2023-08-03 12:42 | disposition home or self-care (01) ==
PROVIDERS: PCP Internal Medicine; Visit Provider Internal Medicine
DX: G30.9 Alzheimer's disease, unspecified (principal); F02.80 Dementia in other diseases classified elsewhere, unspecified severity, without behavioral disturbance, psychotic disturbance, mood disturbance, and anxiety; C50.911 Malignant neoplasm of unspecified site of right female breast; M85.80 Other specified disorders of bone density and structure, unspecified site; R73.02 Impaired glucose tolerance (oral); E78.00 Pure hypercholesterolemia, unspecified; N85.2 Hypertrophy of uterus; M17.11 Unilateral primary osteoarthritis, right knee
CPT/HCPCS: 99214

== ENCOUNTER 2023-08-23 10:49 | Outpatient (AMB) | payer MEDICARE, SELFPAY ==
--- NOTE | 2023-08-23 10:53 | MHC.OFFVIS ---
Intake Vital Signs 08/23/23 10:57 Height 5 ft 4 in Weight 117 lb BMI 20.1 Intake Visit Reasons: OV-Right Knee Pain-Follow up Intake Note: Elba is a 77 year old female who presents today with her daughter for a follow up of right knee pain. Patient reports that she continues to wear knee brace that has been providing her some stability. She reports only mild discomfort in her right knee. She denies any fevers or chills. Allergies No Known Allergies [No Known Allergies*] Allergy (Verified 08/23/23 10:58) Medication List - Last Reconciled 08/23/23 by Damion Eid MD aspirin (Adult Aspirin Regimen) 81 mg PO DAILY biotin 1 mg PO DAILY cholecalciferol (vitamin D3) 25 mcg PO DAILY flaxseed oil 1,000 mg PO DAILY letrozole 2.5 mg PO DAILY pyridoxine (vitamin B6) (Vitamin B-6) 100 mg PO DAILY sertraline 50 mg PO DAILY 90 days simvastatin 40 mg PO QPM 90 days vitamins A,C,K-opqv-lcbuhw 4,296 mcg-226 mg-90 mg (PreserVision AREDS) 1 cap PO BID [facility] Medical History (Updated 08/03/23 @ 11:54 by Isamar Hall MD) Hypertension Right knee pain Constipation Confusion History of right breast cancer Abnormal mammogram of right breast Breast calcification, right Cognitive impairment Memory deficit Overweight (BMI 25.0-29.9) Invasive ductal carcinoma of right breast Breast cancer screening by mammogram Impaired glucose tolerance Tubular adenoma of colon Cholecystoduodenal fistula History of renal calculi Rosacea Hypercholesterolemia Surgical History History of lumpectomy of right breast (~2020) History of rectal polypectomy History of laparotomy History of cystoscopy H/O breast biopsy Family History Family/Other Medical history unknown Father Cancer Social History Household Members: Spouse Housing: House Are you a primary healthcare architect to a significant other at home: No Do you presently have visiting nurse or other home services: No Alcohol intake: current Alcohol intake frequency: does not drink Patient Tobacco Use Status: Never used Tobacco e-Cigarette/Vaping Use: Never Used service: No Current occupational status: employed Cognitive needs: No Hearing needs: No Vision needs: Yes Female Reproductive History Menstrual Age of Menarche: 11 Physical Exam Vital Signs: BMI result Body Mass Index 20.1 Const Other: Well-nourished well-developed very friendly female awake alert and oriented x3 in no acute distress Extrem Other: Bilateral lower extremity examination shows good capillary refill, no skin lesions noted, normal sensation light touch Right knee examination shows a minimal effusion, mild crepitus with range of motion, minimal discomfort with range of motion, no instability Assessment & Plan Assessment & Plan (1) Arthritis of right knee: Code(s): M17.11 - Unilateral primary osteoarthritis, right knee Plan Ms. Crook presents with right knee pain due to degenerative joint disease. I had a lengthy discussion with the patient regarding the treatment options. At this point the patient's symptoms are tolerable to her. She will continue wearing the knee brace for stability. She will follow up with me on an as-needed basis should her symptoms worsen in any way. Feel free to call me at any time should questions regarding her orthopedic management arise. I spent 22 minutes in reviewing the patient's records and imaging studies, seeing the patient and documenting in the medical record. Coding Level of Care Code Est Pt Level 2 (18899) Diagnoses Arthritis of right knee M17.11
[2023-08-23 10:57] VITALS: BMI 20.1
== END 2023-08-23 11:14 | disposition home or self-care (01) ==
PROVIDERS: PCP Internal Medicine; Visit Provider Orthopaedic Surgery
DX: M17.11 Unilateral primary osteoarthritis, right knee (principal)
CPT/HCPCS: 99212

== ENCOUNTER → 2023-08-23 10:49 | Outpatient (BNVA) | payer MEDICARE, SELFPAY | PROVIDERS: PCP Internal Medicine; Visit Provider Orthopaedic Surgery | DX: M17.11 Unilateral primary osteoarthritis, right knee (principal) | CPT/HCPCS: 99212 ==

== ENCOUNTER 2023-09-14 10:40 | Outpatient (REF) | payer MEDICARE, SELFPAY ==
--- NOTE | ~2023-09-14 | MM_ITS ---
EXAMINATION: BONE DENSITOMETRY CLINICAL INDICATION: Osteoporosis. COMPARISON: Previous BD dated 07/06/2021 and baseline BD dated 05/07/2009. TECHNIQUE: Using a [employer] DXA System (software version: 13.1) manufactured by [employer], dual-energy x-ray absorptiometry was performed of the lumbar spine and left hip. The images are of good technical quality. Summary results are attached. FINDINGS: LEFT FEMUR, NECK: Current: BMD 0.854 g/cm2, Z-score 1.0, T-score -1.3, osteopenia. Prior: BMD 0.793 g/cm2. Baseline: BMD 0.915 g/cm2. LEFT FEMUR, TOTAL: Current: BMD 0.833 g/cm2, Z-score 0.8, T-score -1.4, osteopenia, 1.3% decrease from previous, 15.3% decrease from baseline (<5% change is not significant). Prior: BMD 0.844 g/cm2. Baseline: BMD 0.983 g/cm2. AP SPINE L1-L4: Current: BMD 0.876 g/cm2, Z-score -0.3, T-score -2.5, osteoporosis, 10.0% decrease from previous, 13.7% decrease from baseline (<5% change is not significant). Prior: BMD 0.973 g/cm2. Baseline: BMD 1.015 g/cm2. IDENTIFIED RISK FACTORS: Menopause, dementia, height loss, low body weight, low calcium intake. HISTORY OF FRACTURE: None listed. MEDICATIONS: Vitamin D, Prolia. MM/XR DEXA axial skeleton IMPRESSION: 1. DIAGNOSIS: Osteoporosis based on the lowest T-score value of -2.5 in the lumbar spine applying World Health Organization criteria. 2. 10-YEAR FRACTURE RISK PREDICTION, FRAX: According to the guidelines, FRAX calculation should only be performed on patients in the osteopenia bone density category. Therefore, FRAX was not performed on this patient. 3. Treatment Recommendations: NOF guidelines recommend consideration for treatment in postmenopausal women and men age 50 and older presenting with the following: -A hip or vertebral (clinical or morphometric) fracture. -T-score less than or equal to -2.5 at the femoral neck or spine after appropriate evaluation to exclude secondary causes. -Low bone mass at the hip or spine and a 10-year fracture probability by FRAX of greater than or equal to 3% for hip fracture or greater than or equal to 20% for major osteoporotic fracture based on the [place] adapted WHO algorithm. 4. Other Recommendations: All treatment decisions require clinical judgment and consideration of individual patient factors, including patient preferences, comorbidities, previous drug use, risk factors not captured in the FRAX model (e.g. frailty, falls, vitamin D deficiency, increased bone turnover, interval significant decline in bone density) and possible under or overestimation of fracture risk by FRAX. Additional medical evaluation for secondary cause of low bone mineral density may be appropriate. FUTURE SCAN RECOMMENDATION: People with diagnosed cases of osteoporosis or at high risk for fracture should have regular bone mineral density tests. For patients eligible for Medicare, routine testing is allowed once every 2 years. The testing frequency can be increased to one year for patients who have rapidly progressing disease, those who are receiving or discontinuing medical therapy to restore bone mass, or have additional risk factors.
== END 2023-09-14 10:41 | disposition home or self-care (01) ==
LOC: HO.MAMMO 10:40
PROVIDERS: PCP Internal Medicine; Visit Provider Internal Medicine
DX: Z13.820 Encounter for screening for osteoporosis (principal); Z78.0 Asymptomatic menopausal state; M85.80 Other specified disorders of bone density and structure, unspecified site; M81.0 Age-related osteoporosis without current pathological fracture
CPT/HCPCS: 77080

== ENCOUNTER 2023-10-04 09:53 | Outpatient (AMB) | payer MEDICARE, SELFPAY ==
--- NOTE | 2023-10-04 09:53 | A.OFFVIS_ITS ---
Intake Vital Signs 10/04/23 10:03 Height 5 ft 4 in Weight 117 lb BMI 20.1 BP 118/68 Blood Pressure Location Rt brachial Position Sitting Pulse 88 Intake Visit Reasons: 6 month breast exam Intake Note: This patient presents for a six month follow-up breast examination assessment. Pt c/o; reports no breast complaints at this time. Technology Strategist Required: No Accompanied by: Other Relationship Allergies No Known Allergies [No Known Allergies*] Allergy (Verified 10/04/23 10:03) HPI 6 month breast exam HPI Details She here for follow-up for her history of right breast cancer.? She had undergone lumpectomy and sentinel biopsy for invasive ductal cancer on the right breast last June,.? She had a T1 N0 cancer at that time.? She has completed radiation treatment to the breast.? She is on letrozole as her tumor was ER AK positive. She had a bilateral mammogram last June,. There was no suggestion of any recurrence or any new neoplastic process in both breasts. She denies any palpable masses at this time. She says she feels well overall. [facility] Medical History (Updated 10/04/23 @ 09:56 by Justin Suárez MD) History of breast cancer Hypertension Right knee pain Constipation Confusion History of right breast cancer Abnormal mammogram of right breast Breast calcification, right Cognitive impairment Memory deficit Overweight (BMI 25.0-29.9) Invasive ductal carcinoma of right breast Breast cancer screening by mammogram Impaired glucose tolerance Tubular adenoma of colon Cholecystoduodenal fistula History of renal calculi Rosacea Hypercholesterolemia Surgical History History of lumpectomy of right breast (~2020) History of rectal polypectomy History of laparotomy History of cystoscopy H/O breast biopsy Family History Family/Other Medical history unknown Father Cancer Social History Household Members: Spouse Housing: House Are you a primary post anesthesia care unit nurse to a significant other at home: No Do you presently have visiting nurse or other home services: No Alcohol intake: current Alcohol intake frequency: does not drink Patient Tobacco Use Status: Never used Tobacco e-Cigarette/Vaping Use: Never Used service: No Current occupational status: employed Cognitive needs: No Hearing needs: No Vision needs: Yes Female Reproductive History Menstrual Age of Menarche: 11 Physical Exam Chest Other: No palpable breast masses, no nipple or skin changes, no axillary lymphadenopathy Assessment & Plan Assessment & Plan (1) History of breast cancer: Code(s): Z85.3 - Personal history of malignant neoplasm of breast Plan: She is status post lumpectomy and radiation for invasive ductal cancer of the right breast in 2020. She continues to do well. Current exam does not reveal any palpable breast masses or any axillary lymphadenopathy or nipple or skin changes. Her bilateral mammogram from June, was unremarkable as well. She is to continue with her yearly mammograms. She remains on letrozole for hormonal treatment. I will see her in the office in about 6 months. Coding Level of Care Code Est Pt Level 3 (91635) Diagnoses History of breast cancer Z85.3
[2023-10-04 10:03] VITALS: BP 118/68; PULSE 88; BMI 20.1
== END 2023-10-04 10:13 | disposition home or self-care (01) ==
PROVIDERS: PCP Internal Medicine; Visit Provider Surgery
DX: Z85.3 Personal history of malignant neoplasm of breast (principal)
CPT/HCPCS: 99213

== ENCOUNTER → 2023-10-04 09:53 | Outpatient (BNVA) | payer MEDICARE, SELFPAY | PROVIDERS: PCP Internal Medicine; Visit Provider Surgery | DX: Z85.3 Personal history of malignant neoplasm of breast (principal); Z92.3 Personal history of irradiation | CPT/HCPCS: 99212 ==

== ENCOUNTER 2023-11-26 09:18 | Outpatient (REF) | payer MEDICARE, SELFPAY ==
[2023-11-26 09:41] LABS: MANUAL DIFF FLAG NO
[2023-11-26 10:51] LABS: Basophils Percent Auto 0.3 % (0-2); Eosinophils Absolute Auto 0.1 X10*3/uL (0.0-0.4); Eosinophils Percent Auto 1.1 % (0-4); Hematocrit 47.5 % (37.0-47.0); Hemoglobin 15.8 g/dl (12.0-16.0); Imm Gran Abs Auto 0.02 X10*3/uL (0.00-0.03); Imm Gran Pct Auto 0.3 % (0.0-0.4); Lymphocytes Absolute Auto 1.7 X10*3/uL (1.2-4.9); Lymphocytes Percent Auto 24.8 % (20-40); Mean Corpuscular HGB Conc 33.3 g/dl (31.0-35.0); Mean Corpuscular Hemoglobin 31.7 pg (27.0-33.0); Mean Corpuscular Volume 95.2 fL (80.0-98.0); Mean Platelet Volume 10.9 fL (9.4-12.3); Monocytes Absolute Auto 0.3 X10*3/uL (0.1-1.2); Monocytes Percent Auto 5.1 % (2-11); Neutrophils Absolute Auto 4.5 x10*3/uL (2.0-8.3); Neutrophils Percent Auto 68.4 % (45-73); Platelet Count 225 X10*3/uL (160-400); Red Blood Count 4.99 X10*6/uL (4.20-5.50); White Blood Count 6.6 X10*3/uL (4.8-10.8)
[2023-11-26 11:45] LABS: Alanine Aminotransferase 20 U/L (0-31); Albumin Level 4.2 g/dL (3.5-5.0); Alkaline Phosphatase 63 U/L (39-117); Anion Gap 12 (12-20); Aspartate Amino Transferase 23 U/L (5-31); Bilirubin Total 0.6 mg/dL (0.0-1.0); Blood Urea Nitrogen 19 mg/dL (9-16); Calcium 9.4 mg/dL (8.4-10.2); Carbon Dioxide 30 mmol/L (22-29); Chloride 104 mmol/L (96-108); Cholesterol 178 mg/dL (<200); Estimated Glomerular Filt Rate > 60; Glucose Random 96 mg/dL (60-115); HDL Cholesterol 61 mg/dL (>40); LDL Cholesterol Calculated 98 mg/dL (<100); Potassium 3.6 mmol/L (3.3-5.1); Sodium 142 mmol/L (135-145); Total Protein 6.9 g/dL (6.5-8.0); Triglycerides 97 mg/dL (<150)
[2023-11-26 11:49] LABS: Free T4 (Free Thyroxine) 0.98 ng/dL (0.71-1.85); Thyroid Stimulating Hormone 1.69 uIU/mL (0.32-4.0); Vitamin D 25-OH Total 90.7 ng/mL (>30)
[2023-11-26 12:00] LABS: Folate 12.7 ng/mL (> or = 4.0); Vitamin B12 695 pg/mL (200-900)
== END 2023-11-26 09:19 | disposition home or self-care (01) ==
LOC: HO.LAB 09:18
PROVIDERS: PCP Internal Medicine; Visit Provider Internal Medicine
DX: E78.00 Pure hypercholesterolemia, unspecified (principal)
CPT/HCPCS: 36415; 80053; 80061; 82306; 82607; 82746; 84439; 84443; 85025

== ENCOUNTER 2023-11-27 17:38 | Outpatient (REF) | payer MEDICARE, SELFPAY ==
[2023-11-27 18:37] LABS: Appearance Urine Cloudy; Color Urine Yellow; Glucose Urine UA Negative (Negative); Leukocyte Esterase Urine Negative (Negative); Nitrite Urine Negative (Negative); Specific Gravity - Urine 1.015 (1.005-1.025); Urine Blood Negative (Negative); Urine Ketones Negative (Negative); Urine Protein Negative (Neg-Trace)
[2023-11-27 18:43] LABS: Bacteria Urine None Seen (None Seen); Hyaline Casts Urine 0-2 /LPF (0-2); RBC Urine 0-2 /HPF (0-2); Squamous Epithelial Cell Urine 0-2 /HPF (0-2); WBC Urine 0-5 /HPF (0-5)
== END 2023-11-27 17:39 | disposition home or self-care (01) ==
LOC: HO.LNP 17:38
PROVIDERS: Visit Provider Internal Medicine
DX: E78.00 Pure hypercholesterolemia, unspecified (principal); R39.9 Unspecified symptoms and signs involving the genitourinary system
CPT/HCPCS: 81001; 81003

== ENCOUNTER 2023-12-03 14:04 | Outpatient (AMB) | payer MEDICARE, SELFPAY ==
[2023-12-03 14:08] VITALS: BP 116/78; PULSE 86; O2SAT 97; BMI 20.6
--- NOTE | 2023-12-03 14:08 | MHC.PC.OV ---
Vital Signs 12/03/23 14:08 Height 5 ft 4 in Weight 120 lb BMI 20.6 BP 116/78 Blood Pressure Location Lt brachial Position Sitting Pulse 86 Pulse Source Pulse Oximeter Pulse Oximetry (%) 97 Oxygen Delivery Method Room Air Intake Visit Reasons: 6 Months F/U Intake Note: Patient is here to follow up Customer Relations Assistant Required: No Allergies No Known Allergies [No Known Allergies*] Allergy (Verified 12/03/23 14:08) Tobacco use date assessed: 12/03/23 Fall risk assessment: No Falls in past year Last assessed Fall Risk: 12/03/23 Dental Screening Dental Screen Date: 12/03/23 Did you have a dental visit in the last 12 months?: No Did you have a dental problem in the last 6 months where you did not have access to dental care?: No HPI 6 Months F/U HPI Details 78-year-old female with dementia right breast cancer (2020) osteopenia impaired glucose tolerance hypercholesterolemia and right knee arthritis last seen in July 2023. Patient follows up with the surgeon examination of the breast September 2023 mammogram last June 2023. Patient also follows up with orthopedics for the right knee osteoarthritis on a knee brace. Patient has been doing fine otherwise no nausea no vomiting no chest pains no shortness a breath no bowel bladder symptoms. [facility] Medical History (Updated 10/04/23 @ 09:56 by Justin Suárez MD) History of breast cancer Hypertension Right knee pain Constipation Confusion History of right breast cancer Abnormal mammogram of right breast Breast calcification, right Cognitive impairment Memory deficit Overweight (BMI 25.0-29.9) Invasive ductal carcinoma of right breast Breast cancer screening by mammogram Impaired glucose tolerance Tubular adenoma of colon Cholecystoduodenal fistula History of renal calculi Rosacea Hypercholesterolemia Surgical History History of lumpectomy of right breast (~2020) History of rectal polypectomy History of laparotomy History of cystoscopy H/O breast biopsy Family History Family/Other Medical history unknown Father Cancer Social History Household Members: Spouse Housing: House Are you a primary career guidance technician to a significant other at home: No Do you presently have visiting nurse or other home services: No Alcohol intake: current Alcohol intake frequency: does not drink Patient Tobacco Use Status: Never used Tobacco e-Cigarette/Vaping Use: Never Used service: No Current occupational status: employed Cognitive needs: No Hearing needs: No Vision needs: Yes Female Reproductive History Menstrual Age of Menarche: 11 Questionnaire PHQ-9 Over the last 2 weeks, how often have you been bothered by any of the following problems? 1. Little interest or pleasure in doing things: several days 2. Feeling down, depressed, or hopeless: several days 3. Trouble falling or staying asleep, or sleeping too much: nearly every day 4. Feeling tired or having little energy: nearly every day 5. Poor appetite or overeating: not at all 6. Feeling bad about yourself - or that you are a failure or have let yourself or your family down: not at all 7. Trouble concentrating on things, such as reading the newspaper or watching television: not at all 8. Moving or speaking so slowly that other people could have noticed. Or the opposite - being so fidgety or restless that you have been moving around a lot more than usual: not at all 9. Thoughts that you would be better off or of hurting yourself in some way: not at all Total score: 8 Depression Screening Interpretation: Positive Depression Screening Done: Yes Source: Developed by Drs. Wu Bell, Roberta Olsen, Jayme Storey and colleagues, with an educational jhonny from [employer]. Thrive Questionnaire Date Thrive assessed: 12/03/23 I am a: Patient What is your living situation today?: I have a steady place to live Within the past 12 months, did the food you bought not last and you didn't have the money to get more?: Never true Within the past 12 months, did you worry whether your food would run out before you got money to buy more?: Never true Do you have trouble paying for medicines?: No Do you have trouble getting transportation to medical appointments?: No Do you have trouble paying your heating and electricity bill?: No Do you have trouble taking care of your child, family member or friend?: No Do you have trouble with day-to-day activities such as bathing, preparing meals, shopping, managing finances, etc.?: No Are you currently unemployed and looking for a job?: No Are you interested in more education?: No Please select the resources that you would like help with: None THRIVE Score: 0 AUDIT C Alcohol Use Questionnaire (AUDIT-C) 1. How often do you have a drink containing alcohol?: Monthly or less 2. How many drinks containing alcohol do you have on a typical day when you are drinking?: 1 or 2 3. How often do you have six or more drinks on one occasion?: Never Total Score: 1 MATTEO-7 AMB Questionnaire MATTEO-7 Date MATTEO - 7 assessed: 12/03/23 Source: Developed by Drs. Wu Bell, Roberta Olsen, Jayme Storey and colleagues, with an educational jhonny from [employer]. Physical exam (Primary Care) Vital Signs: Last Vital Signs Pulse 86 12/03/23 14:08 BP 116/78 12/03/23 14:08 Pulse Ox 97 12/03/23 14:08 Oxygen Delivery Method Room Air 12/03/23 14:08 BMI result Body Mass Index 20.6 Tobacco/Smoking Status: Tobacco use Status Tobacco use date assessed 12/03/23 12/03/23 14:09 Patient Tobacco Use Status Never used Tobacco 12/03/23 14:09 e-Cigarette/Vaping Use Never Used 12/03/23 14:09 PHQ-9: PHQ-9 Score PHQ-9: Total score 8 12/03/23 14:09 Depression Screening Interpretation: Positive Thrive Assessment: Date of Thrive Assessment Date Thrive assessed 12/03/23 12/03/23 14:09 Const General: alert; No acute distress Eyes Conjunctivae: conjunctivae normal Resp Auscultation: clear to auscultation bilaterally Cardio Rate: regular rate Rhythm: regular rhythm GI Inspection: Yes normal to inspection Extrem General: Yes normal to inspection and No edema Assessment and Plan Assessment & Plan (1) Invasive ductal carcinoma of right breast: Comment: Breast lumpectomy July 2021 Code(s): C50.911 - Malignant neoplasm of unspecified site of right female breast Plan: Patient continues to be followed up by the surgeon and up-to-date with mammogram (2) Osteoarthritis of knees, bilateral: Code(s): M17.0 - Bilateral primary osteoarthritis of knee Plan: On a knee brace has seen Orthopedics. (3) Hypercholesterolemia: Code(s): E78.00 - Pure hypercholesterolemia, unspecified Plan: Avoid fried foods, chicken skin, eggs, butter margarine, pastries and meat. Be it pork or beef they have a lot of cholesterol LDL goal of less than 130 and triglyceride of less than 150. (4) Impaired glucose tolerance: Code(s): R73.02 - Impaired glucose tolerance (oral) Plan: Decrease the amount of carbohydrate intake, pasta, bread, rice and potatoes are all sugar and that is aside from all the sweet stuff, remember that fruits are good but they are Sweet also. (5) Alzheimer's dementia: Code(s): G30.9 - Alzheimer's disease, unspecified; F02.80 - Dementia in other diseases classified elsewhere, unspecified severity, without behavioral disturbance, psychotic disturbance, mood disturbance, and anxiety Coding Level of Care Code Est Pt Level 4 (61167) Diagnoses Invasive ductal carcinoma of right breast C50.911 Osteoarthritis of knees, bilateral M17.0 Hypercholesterolemia E78.00 Impaired glucose tolerance R73.02 Alzheimer's dementia G30.9; F02.80 Additional Codes PHQ-9 - 53672 - PHQ-9 Billing: ([id number])
== END 2023-12-03 14:49 | disposition home or self-care (01) ==
PROVIDERS: PCP Internal Medicine; Visit Provider Internal Medicine
DX: C50.911 Malignant neoplasm of unspecified site of right female breast (principal); M17.0 Bilateral primary osteoarthritis of knee; G30.9 Alzheimer's disease, unspecified; F02.80 Dementia in other diseases classified elsewhere, unspecified severity, without behavioral disturbance, psychotic disturbance, mood disturbance, and anxiety
CPT/HCPCS: 99214

== ENCOUNTER 2024-02-21 13:25 | Outpatient (AMB) | payer MEDICARE, SELFPAY ==
--- NOTE | 2024-02-21 13:28 | MHC.OFFVIS ---
Intake Visit Reasons: inj-B/L knee injection Intake Note: Elba is a 78 year old female who presents to the office today with complaints of bilateral knee pains. She describes her pains as sharp in nature. She has tried Tylenol which gives her mild relief. She wishes to hold off on surgery for as long as possible. Accompanied by: Son Allergies No Known Allergies [No Known Allergies*] Allergy (Verified 01/09/24 13:09) Medication List - Last Reconciled 02/22/24 by Damion Eid MD aspirin (Adult Aspirin Regimen) 81 mg PO DAILY biotin 1 mg PO DAILY cholecalciferol (vitamin D3) 25 mcg PO DAILY flaxseed oil 1,000 mg PO DAILY letrozole 2.5 mg PO DAILY pyridoxine (vitamin B6) (Vitamin B-6) 100 mg PO DAILY quetiapine (Seroquel) 25 mg PO BID sertraline 50 mg PO DAILY 90 days simvastatin 40 mg PO QPM 90 days vitamins A,C,P-aocm-xtdezj 4,296 mcg-226 mg-90 mg (PreserVision AREDS) 1 cap PO BID [facility] Medical History (Updated 02/22/24 @ 07:27 by Damion Eid MD) History of breast cancer Hypertension Right knee pain Constipation Confusion History of right breast cancer Abnormal mammogram of right breast Breast calcification, right Cognitive impairment Memory deficit Overweight (BMI 25.0-29.9) Invasive ductal carcinoma of right breast Breast cancer screening by mammogram Impaired glucose tolerance Tubular adenoma of colon Cholecystoduodenal fistula History of renal calculi Rosacea Hypercholesterolemia Surgical History History of lumpectomy of right breast (~2020) History of rectal polypectomy History of laparotomy History of cystoscopy H/O breast biopsy Family History Family/Other Medical history unknown Father Cancer Social History Household Members: Spouse Housing: House Are you a primary transitional care liaison to a significant other at home: No Do you presently have visiting nurse or other home services: No Alcohol intake: current Alcohol intake frequency: does not drink Patient Tobacco Use Status: Never used Tobacco e-Cigarette/Vaping Use: Never Used service: No Current occupational status: employed Cognitive needs: No Hearing needs: No Vision needs: Yes Female Reproductive History Menstrual Age of Menarche: 11 Physical Exam Const Other: Well-nourished well-developed very friendly female awake alert and oriented x3 in no acute distress Extrem Other: Bilateral lower extremity examination shows good capillary refill, no skin lesions noted, normal sensation light touch Bilateral knee examination shows minimal effusions, palpable crepitus with range of motion, pain with range of motion, no instability Office Procedures Joint Injection/Drain Joint Injection/Drain Primary Site: left knee Prep: site was prepped using aseptic technique Injected: 40 mg of, DepoMedrol and 1% plain lidocaine Procedure: The patient tolerated the procedure well Coding - Large joint Procedure code (CPT) selection complete Joint Injection/Drain Joint Injection/Drain Primary Site: right knee Prep: site was prepped using aseptic technique Injected: 40 mg of, DepoMedrol and 1% plain lidocaine Procedure: The patient tolerated the procedure well Coding - Large joint Procedure code (CPT) selection complete Assessment & Plan Assessment & Plan (1) Arthritis of left knee: Code(s): M17.12 - Unilateral primary osteoarthritis, left knee Category: Medical (2) Arthritis of right knee: Code(s): M17.11 - Unilateral primary osteoarthritis, right knee Category: Medical Plan Ms. Crook presents with bilateral knee pains due to degenerative joint disease. I had a lengthy discussion with the patient regarding the treatment options. The risks and benefits of bilateral knee cortisone injections were discussed at length with the patient. The patient wished to proceed. She tolerated the injections well. She will follow up with me on an as-needed basis should her symptoms not plateau at an unacceptable level over the next few months. Feel free to call me at any time should questions regarding her orthopedic management arise. I spent 21 minutes in reviewing the patient's records and imaging studies, seeing the patient and documenting in the medical record. Orders: Orders AMB Joint Injection/Aspiration 02/21/24 M17.11 - Unilateral primary osteoarthritis, right knee AMB Joint Injection/Aspiration 02/21/24 M17.12 - Unilateral primary osteoarthritis, left knee Coding Level of Care Code Est Pt Level 3 (07074) Diagnoses Arthritis of left knee M17.12 Arthritis of right knee M17.11 CPT Codes Coding - Large joint: 37066 - Large joint ([id number]) Coding - 10321 Large joint: 00930 - Large joint ([id number])
== END 2024-02-21 13:50 | disposition home or self-care (01) ==
PROVIDERS: PCP Internal Medicine; Visit Provider Orthopaedic Surgery
DX: M17.0 Bilateral primary osteoarthritis of knee (principal)
CPT/HCPCS: 20610; 99213

== ENCOUNTER → 2024-02-21 13:25 | Outpatient (BNVA) | payer MEDICARE, SELFPAY | PROVIDERS: PCP Internal Medicine; Visit Provider Orthopaedic Surgery | DX: M17.0 Bilateral primary osteoarthritis of knee (principal) | CPT/HCPCS: 20610; 99212; J1010 ==

== ENCOUNTER 2024-03-14 17:08 | Outpatient (REF) | payer MEDICARE, SELFPAY ==
[2024-03-14 18:10] LABS: Appearance Urine Clear; Color Urine Yellow; Glucose Urine UA Negative (Negative); Leukocyte Esterase Urine Negative (Negative); Nitrite Urine Negative (Negative); PH 6.5 (5.0-9.0); Specific Gravity - Urine 1.015 (1.005-1.025); Urine Blood Negative (Negative); Urine Ketones Negative (Negative); Urine Protein Negative (Neg-Trace)
== END 2024-03-14 17:09 | disposition home or self-care (01) ==
LOC: HO.LNP 17:08
PROVIDERS: Visit Provider Internal Medicine
DX: N39.0 Urinary tract infection, site not specified (principal)
CPT/HCPCS: 81003

== ENCOUNTER 2024-03-27 09:27 | Outpatient (AMB) | payer MEDICARE, SELFPAY ==
--- NOTE | 2024-03-27 09:48 | MHC.PC.OV ---
Vital Signs 03/27/24 09:49 Height 5 ft 4 in Weight 114 lb BMI 19.6 BP 102/58 L Blood Pressure Location Lt brachial Position Sitting Pulse 59 Pulse Source Pulse Oximeter Pulse Oximetry (%) 97 Oxygen Delivery Method Room Air Intake Visit Reasons: Follow Up on Portal Message Allergies No Known Allergies [No Known Allergies*] Allergy (Verified 03/27/24 09:50) Medication List - Last Reconciled 03/27/24 by Isamar Hall MD aspirin (Adult Aspirin Regimen) 81 mg PO DAILY biotin 1 mg PO DAILY cholecalciferol (vitamin D3) 25 mcg PO DAILY hydroxyzine HCl 25 mg PO BID PRN letrozole 2.5 mg PO DAILY pyridoxine (vitamin B6) (Vitamin B-6) 100 mg PO DAILY quetiapine (Seroquel) 25 mg PO BID sertraline 50 mg PO DAILY 90 days simvastatin 40 mg PO QPM 90 days vitamins A,C,J-ibnr-qtrgqi 4,296 mcg-226 mg-90 mg (PreserVision AREDS) 1 cap PO BID Tobacco use date assessed: 12/03/23 Fall risk assessment: No Falls in past year Last assessed Fall Risk: 03/27/24 Dental Screening Dental Screen Date: 12/03/23 HPI Follow Up on Portal Message HPI Details 78-year-old female with a history of breast cancer on the right bilateral osteoarthritis hypercholesterolemia impaired glucose tolerance and Alzheimer's dementia coming in for follow-up. Last seen in 12/03/2023. Patient is up-to-date with colonoscopy mammogram and bone density. Review of the notes patient has been following up with orthopedics due to bilateral knee pains and had injections done on both knees. As for the breast cancer 08/06/2021 diagnosis follows up with Hematology-Oncology had right breast lumpectomy radiation therapy in 2021 letrozole for the bone density started on Zometa. Has been in discussion with the son regarding patient's declining mental capacity. Patient has been advised by the research and insights executive for an antipsychotic medication. customer service engineer will bring papers in. Family is here with discussions on the patient's dementia declining with 02:00 o'clock p.m. of having paranoid feelings. Does have the Seroquel in the morning in the in the evening does complain about some dryness in the mouth and some incontinence at nighttime mostly. Discussed about Timed voiding meaning every 1-2 hours even if you do not feel like urinating empty the bladder, avoid drinks with high sweet content like juices or caffeine that makes her urinate, 2 hours before you sleep hold liquids so that in the morning you do not get the bladder to be too full. Discussion about long-term care also. [facility] Medical History (Updated 03/13/24 @ 17:09 by Isamar Hall MD) History of breast cancer Hypertension Right knee pain Constipation Confusion History of right breast cancer Abnormal mammogram of right breast Breast calcification, right Cognitive impairment Memory deficit Overweight (BMI 25.0-29.9) Invasive ductal carcinoma of right breast Breast cancer screening by mammogram Impaired glucose tolerance Tubular adenoma of colon Cholecystoduodenal fistula History of renal calculi Rosacea Hypercholesterolemia Surgical History History of lumpectomy of right breast (~2020) History of rectal polypectomy History of laparotomy History of cystoscopy H/O breast biopsy Family History Family/Other Medical history unknown Father Cancer Social History Household Members: Spouse Housing: House Are you a primary manager medicare to a significant other at home: No Do you presently have visiting nurse or other home services: No Alcohol intake: current Alcohol intake frequency: does not drink Patient Tobacco Use Status: Never used Tobacco e-Cigarette/Vaping Use: Never Used service: No Current occupational status: employed Cognitive needs: No Hearing needs: No Vision needs: Yes Female Reproductive History Menstrual Age of Menarche: 11 Questionnaire PHQ-9 Over the last 2 weeks, how often have you been bothered by any of the following problems? 1. Little interest or pleasure in doing things: several days 2. Feeling down, depressed, or hopeless: several days 3. Trouble falling or staying asleep, or sleeping too much: nearly every day 4. Feeling tired or having little energy: nearly every day 5. Poor appetite or overeating: not at all 6. Feeling bad about yourself - or that you are a failure or have let yourself or your family down: not at all 7. Trouble concentrating on things, such as reading the newspaper or watching television: not at all 8. Moving or speaking so slowly that other people could have noticed. Or the opposite - being so fidgety or restless that you have been moving around a lot more than usual: not at all 9. Thoughts that you would be better off or of hurting yourself in some way: not at all Total score: 8 Depression Screening Interpretation: Positive Depression Screening Done: Yes Source: Developed by Drs. Wu Bell, Jayme Gilman and colleagues, with an educational jhonny from [employer]. Thrive Questionnaire Date Thrive assessed: 12/03/23 AUDIT C Alcohol Use Questionnaire (AUDIT-C) 1. How often do you have a drink containing alcohol?: Monthly or less 2. How many drinks containing alcohol do you have on a typical day when you are drinking?: 1 or 2 3. How often do you have six or more drinks on one occasion?: Never Total Score: 1 MATTEO-7 AMB Questionnaire MATTEO-7 Date MATTEO - 7 assessed: 12/03/23 Source: Developed by Drs. Wu Bell, Jayme Gilman and colleagues, with an educational jhonny from [employer]. Physical exam (Primary Care) Vital Signs: Last Vital Signs Pulse 59 03/27/24 09:49 BP 102/58 L 03/27/24 09:49 Pulse Ox 97 03/27/24 09:49 Oxygen Delivery Method Room Air 03/27/24 09:49 BMI result Body Mass Index 19.6 Tobacco/Smoking Status: Tobacco use Status Tobacco use date assessed 12/03/23 03/27/24 09:56 Patient Tobacco Use Status Never used Tobacco 03/27/24 09:56 e-Cigarette/Vaping Use Never Used 03/27/24 09:56 PHQ-9: PHQ-9 Score PHQ-9: Total score 8 03/27/24 09:56 Depression Screening Interpretation: Positive Thrive Assessment: Date of Thrive Assessment Date Thrive assessed 12/03/23 03/27/24 09:56 Const General: alert; No acute distress Eyes Conjunctivae: conjunctivae normal Resp Auscultation: clear to auscultation bilaterally Cardio Rate: regular rate Rhythm: regular rhythm GI Inspection: Yes normal to inspection Extrem General: Yes normal to inspection and No edema Assessment and Plan Assessment & Plan (1) Alzheimer's dementia: Code(s): G30.9 - Alzheimer's disease, unspecified; F02.80 - Dementia in other diseases classified elsewhere, unspecified severity, without behavioral disturbance, psychotic disturbance, mood disturbance, and anxiety Plan: Supportive treatment has been placed on Seroquel and sertraline. Will add hydroxyzine to use as needed to help come patient down (2) Invasive ductal carcinoma of right breast: Comment: Breast lumpectomy July 2021 Code(s): C50.911 - Malignant neoplasm of unspecified site of right female breast Plan: Continue to follow-up with Hematology-Oncology and June due for mammogram (3) Hypercholesterolemia: Code(s): E78.00 - Pure hypercholesterolemia, unspecified Plan: Avoid fried foods, chicken skin, eggs, butter margarine, pastries and meat. Be it pork or beef they have a lot of cholesterol on simvastatin 40 mg once a day Medications: New hydroxyzine HCl 25 mg PO BID PRN 60 tabs 0RF itching F02.80 - Dementia in other diseases classified elsewhere, unspecified severity, without behavioral disturbance, psychotic disturbance, mood disturbance, and anxiety, G30.9 - Alzheimer's disease, unspecified diclofenac sodium 1% (Arthritis Pain (diclofenac)) apply to single knee, ankle, foot; for foot includes sole/toes/top of foot 4 grams topical QID 100 grams 3RF M17.12 - Unilateral primary osteoarthritis, left knee Coding Level of Care Code Est Pt Level 4 (76154) Diagnoses Alzheimer's dementia G30.9; F02.80 Invasive ductal carcinoma of right breast C50.911 Hypercholesterolemia E78.00 Additional Codes PHQ-9 - 61345 - PHQ-9 Billing: ([id number])
[2024-03-27 09:49] VITALS: BP 102/58; PULSE 59; O2SAT 97; BMI 19.6
== END 2024-03-27 12:41 | disposition home or self-care (01) ==
PROVIDERS: PCP Internal Medicine; Visit Provider Internal Medicine
DX: G30.9 Alzheimer's disease, unspecified (principal); F02.80 Dementia in other diseases classified elsewhere, unspecified severity, without behavioral disturbance, psychotic disturbance, mood disturbance, and anxiety; C50.911 Malignant neoplasm of unspecified site of right female breast; E78.00 Pure hypercholesterolemia, unspecified
CPT/HCPCS: 99214

== ENCOUNTER 2024-06-04 11:03 | Outpatient (AMB) | payer MEDICARE, SELFPAY ==
[2024-06-04 11:10] VITALS: BP 108/70; PULSE 119; O2SAT 96; BMI 16.0
--- NOTE | 2024-06-04 11:10 | A.OFFPC_ITS ---
Vital Signs 06/04/24 11:10 Height 5 ft 4 in Weight 93 lb 0.561 oz BMI 16.0 BP 108/70 Blood Pressure Location Lt brachial Position Sitting Pulse 119 H Pulse Source Pulse Oximeter Pulse Oximetry (%) 96 Oxygen Delivery Method Room Air Intake Visit Reasons: Breast Cancer, HTN [employer] Required: No Accompanied by: Son Allergies No Known Allergies [No Known Allergies*] Allergy (Verified 06/04/24 11:10) Tobacco use date assessed: 12/03/23 Fall risk assessment: No Falls in past year Last assessed Fall Risk: 06/04/24 Dental Screening Dental Screen Date: 12/03/23 HPI Breast Cancer, HTN HPI Details 78-year-old female with dementia right b reast cancer hypercholesterolemia last seen in 04/05/2024. Noted 21 lb weight loss. /After last meeting was in [facility] then moved to medical home for dementia- [facility]yl[facility] head [phone] due for mammo in 06/2024 called eats discussed my concerns with her weight loss. Patient eats fairly to meals with /ensure have advised to pay particular attention for her oral intake as far as the Seroquel being given twice a day she has not been sleeping a lot during daytime which is good. Workup pending. [facility] Medical History (Updated 06/04/24 @ 11:34 by Isamar Hall MD) Hypertension Right knee pain Constipation Confusion Breast calcification, right Cognitive impairment Memory deficit Overweight (BMI 25.0-29.9) Invasive ductal carcinoma of right breast Breast cancer screening by mammogram Impaired glucose tolerance Tubular adenoma of colon Cholecystoduodenal fistula History of renal calculi Rosacea Hypercholesterolemia Surgical History History of lumpectomy of right breast (~2020) History of rectal polypectomy History of laparotomy History of cystoscopy H/O breast biopsy Family History Family/Other Medical history unknown Father Cancer Social History Household Members: Spouse Housing: House Are you a primary childcare attendant to a significant other at home: No Do you presently have visiting nurse or other home services: No Alcohol intake: current Alcohol intake frequency: does not drink Patient Tobacco Use Status: Never used Tobacco Tobacco use type: Cigarette e-Cigarette/Vaping Use: Never Used service: No Current occupational status: employed Cognitive needs: No Hearing needs: No Vision needs: Yes Female Reproductive History Menstrual Age of Menarche: 11 Questionnaire PHQ-9 Over the last 2 weeks, how often have you been bothered by any of the following problems? 1. Little interest or pleasure in doing things: several days 2. Feeling down, depressed, or hopeless: several days 3. Trouble falling or staying asleep, or sleeping too much: nearly every day 4. Feeling tired or having little energy: nearly every day 5. Poor appetite or overeating: not at all 6. Feeling bad about yourself - or that you are a failure or have let yourself or your family down: not at all 7. Trouble concentrating on things, such as reading the newspaper or watching television: not at all 8. Moving or speaking so slowly that other people could have noticed. Or the opposite - being so fidgety or restless that you have been moving around a lot more than usual: not at all 9. Thoughts that you would be better off or of hurting yourself in some way: not at all Total score: 8 Depression Screening Interpretation: Positive Depression Screening Done: Yes Source: Developed by Drs. Wu Bell, Jayme Gilman and colleagues, with an educational jhonny from [employer]. Thrive Questionnaire Date Thrive assessed: 12/03/23 Are you currently unemployed and looking for a job?: No AUDIT C Alcohol Use Questionnaire (AUDIT-C) 1. How often do you have a drink containing alcohol?: Monthly or less 2. How many drinks containing alcohol do you have on a typical day when you are drinking?: 1 or 2 3. How often do you have six or more drinks on one occasion?: Never Total Score: 1 MATTEO-7 AMB Questionnaire MATTEO-7 Date MATTEO - 7 assessed: 12/03/23 Source: Developed by Drs. Wu Bell, Jayme Gilman and colleagues, with an educational jhonny from [employer]. Physical exam (Primary Care) Vital Signs: Last Vital Signs Pulse 119 H 06/04/24 11:10 BP 108/70 06/04/24 11:10 Pulse Ox 96 06/04/24 11:10 Oxygen Delivery Method Room Air 06/04/24 11:10 BMI result Body Mass Index 16.0 Tobacco/Smoking Status: Tobacco use Status Tobacco use date assessed 12/03/23 06/04/24 11:21 Patient Tobacco Use Status Never used Tobacco 06/04/24 11:21 Tobacco use type Cigarette 06/04/24 11:21 e-Cigarette/Vaping Use Never Used 06/04/24 11:21 PHQ-9: PHQ-9 Score PHQ-9: Total score 8 06/04/24 11:21 Depression Screening Interpretation: Positive Thrive Assessment: Date of Thrive Assessment Date Thrive assessed 12/03/23 06/04/24 11:21 Const General: alert; No acute distress Eyes Conjunctivae: conjunctivae normal Resp Auscultation: clear to auscultation bilaterally Cardio Rate: regular rate Rhythm: regular rhythm GI Inspection: Yes normal to inspection Extrem General: Yes normal to inspection and No edema Assessment and Plan Assessment & Plan (1) Alzheimer's dementia: Code(s): G30.9 - Alzheimer's disease, unspecified; F02.80 - Dementia in other diseases classified elsewhere, unspecified severity, without behavioral disturbance, psychotic disturbance, mood disturbance, and anxiety Plan: Supportive treatment. Concerns about weight loss and has called on medical home for particular attention her oral intake. Workup is being done. (2) Invasive ductal carcinoma of right breast: Comment: Breast lumpectomy July 2021 Code(s): C50.911 - Malignant neoplasm of unspecified site of right female breast Plan: Patient has been on letrozole (3) Hypercholesterolemia: Code(s): E78.00 - Pure hypercholesterolemia, unspecified Plan: Avoid fried foods, chicken skin, eggs, butter margarine, pastries and meat. Be it pork or beef they have a lot of cholesterol (4) Generalized anxiety disorder: Code(s): F41.1 - Generalized anxiety disorder Plan: Patient on sertraline and Seroquel (5) Weight loss: Code(s): R63.4 - Abnormal weight loss Orders: Orders Complete Blood Count Auto Diff Today R63.4 - Abnormal weight loss Thyroid Stimulating Hormone Today R63.4 - Abnormal weight loss Vitamin B12 and Folate Today R63.4 - Abnormal weight loss UA CC w/rflx Micro + Cult Today R30.0 - Dysuria, R63.4 - Abnormal weight loss Ferritin Today R63.4 - Abnormal weight loss IRON PROFILE Today R63.4 - Abnormal weight loss Reticulocyte Count Today R63.4 - Abnormal weight loss Comprehensive Met. Panel Today R63.4 - Abnormal weight loss Free T4 (Free Thyroxine) Today R63.4 - Abnormal weight loss XR chest 2V Today R63.4 - Abnormal weight loss Coding Level of Care Code Est Pt Level 4 (26837) Diagnoses Alzheimer's dementia G30.9; F02.80 Invasive ductal carcinoma of right breast C50.911 Hypercholesterolemia E78.00 Generalized anxiety disorder F41.1 Weight loss R63.4 Additional Codes PHQ-9 - 52542 - PHQ-9 Billing: ([id number])
== END 2024-06-04 11:44 | disposition home or self-care (01) ==
PROVIDERS: PCP Internal Medicine; Visit Provider Internal Medicine
DX: G30.9 Alzheimer's disease, unspecified (principal); F02.80 Dementia in other diseases classified elsewhere, unspecified severity, without behavioral disturbance, psychotic disturbance, mood disturbance, and anxiety; C50.911 Malignant neoplasm of unspecified site of right female breast; E78.00 Pure hypercholesterolemia, unspecified; F41.1 Generalized anxiety disorder; R63.4 Abnormal weight loss

== ENCOUNTER 2024-06-04 11:03 | Outpatient (REF) | payer MEDICARE, SELFPAY ==
--- NOTE | ~2024-06-04 | XR_ITS ---
EXAMINATION: XR CHEST CLINICAL INFORMATION: Abnormal weight loss COMPARISON: April 02, 2019 TECHNIQUE: 2 views of the chest were obtained. FINDINGS: No significant abnormality is noted involving the heart, lungs, mediastinum, bony thorax or soft tissues. XR/XR chest 2V IMPRESSION: Unremarkable examination. Electronically signed by: Radhika Rocha MD 06/04/2024 02:44 PM EDT
[2024-06-04 12:25] LABS: MANUAL DIFF FLAG NO
[2024-06-04 13:29] LABS: Basophils Percent Auto 0.2 % (0-2); Eosinophils Absolute Auto 0.1 X10*3/uL (0.0-0.4); Eosinophils Percent Auto 1.1 % (0-4); Hematocrit 45.9 % (37.0-47.0); Hemoglobin 14.7 g/dl (12.0-16.0); Imm Gran Abs Auto 0.04 X10*3/uL (0.00-0.03); Imm Gran Pct Auto 0.5 % (0.0-0.4); Immature Retic Fraction 10.2 % (3.0-15.9); Lymphocytes Absolute Auto 1.5 X10*3/uL (1.2-4.9); Lymphocytes Percent Auto 18.5 % (20-40); Mean Corpuscular Hemoglobin 28.4 pg (27.0-33.0); Mean Corpuscular Volume 88.8 fL (80.0-98.0); Mean Platelet Volume 10.8 fL (9.4-12.3); Monocytes Absolute Auto 0.4 X10*3/uL (0.1-1.2); Monocytes Percent Auto 4.9 % (2-11); Neutrophils Absolute Auto 6.1 x10*3/uL (2.0-8.3); Neutrophils Percent Auto 74.8 % (45-73); Platelet Count 425 X10*3/uL (160-400); Red Blood Count 5.17 X10*6/uL (4.20-5.50); Red Cell Distribution Width 15.5 % (11.0-16.0); Retic HGB Equivalent 34.4 pg (30.0-35.0); Reticulocyte Percent 1.3 % (0.5-1.8); Reticulocytes Absolute 0.069 X10*6/uL (0.026-0.095); White Blood Count 8.2 X10*3/uL (4.8-10.8)
[2024-06-04 14:30] LABS: Alanine Aminotransferase 17 U/L (0-31); Albumin Level 3.8 g/dL (3.5-5.0); Alkaline Phosphatase 93 U/L (39-117); Anion Gap 13 (12-20); Aspartate Amino Transferase 18 U/L (5-31); Bilirubin Total 0.6 mg/dL (0.0-1.0); Blood Urea Nitrogen 15 mg/dL (9-16); Calcium 9.9 mg/dL (8.4-10.2); Carbon Dioxide 28 mmol/L (22-29); Chloride 107 mmol/L (96-108); Estimated Glomerular Filt Rate > 60; Ferritin 506 ng/mL (10-250); Free T4 (Free Thyroxine) 0.97 ng/dL (0.71-1.85); Glucose Random 224 mg/dL (60-115); Iron 49 mcg/dL (30-160); Percent Iron Saturation 30 % (15-50); Potassium 3.2 mmol/L (3.3-5.1); Sodium 145 mmol/L (135-145); Thyroid Stimulating Hormone 0.96 uIU/mL (0.32-4.0); Total Iron Binding Capacity 162 mcg/dL (228-428); Total Protein 7.4 g/dL (6.5-8.0); Unsaturated Iron Binding 113 ug/dL
[2024-06-04 14:33] LABS: Folate 8.9 ng/mL (> or = 4.0); Vitamin B12 1026 pg/mL (200-900)
== END 2024-06-04 11:04 | disposition home or self-care (01) ==
LOC: HO.XRAY 11:03
PROVIDERS: PCP Internal Medicine; Visit Provider Internal Medicine
DX: R63.4 Abnormal weight loss (principal); I10 Essential (primary) hypertension; C50.911 Malignant neoplasm of unspecified site of right female breast; G30.9 Alzheimer's disease, unspecified; F02.80 Dementia in other diseases classified elsewhere, unspecified severity, without behavioral disturbance, psychotic disturbance, mood disturbance, and anxiety; E78.00 Pure hypercholesterolemia, unspecified; F41.1 Generalized anxiety disorder; R30.0 Dysuria
CPT/HCPCS: 36415; 71046; 80053; 82607; 82728; 82746; 83540; 84439; 84443; 85025; 85045; 99212